=== PATIENT | female | born 1970 | race Hispanic/Latino ===

== ENCOUNTER 2016-04-20 18:08 | Inpatient (IN) | payer OTHER ==
[~2016-04-20] VITALS: Ht 162.6 cm; Wt 92.7 kg
[~2016-04-20 18:08] MED LIST: ALTACE10 MG PO; ALTACE2.5 MG PO; AMLODIPINE BESYL5 MG PO; AMOXICILLIN250 MG PO; ANCEF,KEFZ2 GM/100 M IV; ASPIR 8181 M1 PO; ATIVAN0.5 MG PO; BACTRIM,SEPT1 TABLET PO; BENTYL10 MG PO; CARAFATE1 GM PO; CEFTIN250 MG PO; CIPRO500 MG PO; COLACE100 MG PO; CYANOCOBALAM1000 MCG PO; CYCLOBENZAPRINE10 MG PO; DICYCLOMINE HCL20 MG PO; FERROUS SULFAT325 MG PO; FLEXERIL10 MG PO; FLUCONAZOLE200 MG PO; K-DUR10 MEQ PO; LEVAQUIN750 MG PO; LEVEMIR FL100 UNIT/1 SC; LEVEMIR100 UNIT/2 SC; LIPITOR40 MG PO; LOPRESSOR25 MG PO; LOPRESSOR50 MG PO; MACROBID100 MG PO; METOCLOPRAMIDE H5 MG PO; METOCLOPRAMIDE10 MG PO; MICRO-K10 ME2 PO; NAPROSYN500 MG PO; NAPROXEN500 MG PO; NOVOLIN,HU100 UNITS1 SC; NOVOLOG 10100 UNITS/ SC; NOVOLOG PE100 UNITS/ SC; OMEPRAZOLE20 MG PO; OMEPRAZOLE40 M1 PO; ONDANSETRON HCL4 MG PO; PANTOPRAZOLE SO40 MG PO; PHENADOZ25 MG PR; PHENERGAN25 MG PR; PRAVACHOL80 MG PO; PRAVASTATIN SOD80 MG PO; PRILOSEC20 MG PO; PROMETHAZINE HC25 MG PR; PROTONIX40 MG PO; PYRIDIUM100 MG PO; RAMIPRIL10 MG PO; REGLAN10 MG PO; REGLAN5 MG PO; SIMVASTATIN40 MG PO; SUCRALFATE1 GM PO; TRAMADOL HCL50 MG PO; ULTRAM50 MG PO; VANCOCIN 250 M250 MG PO; VANCOCIN HCL125 MG PO; ZOCOR40 MG PO; ZOFRAN ODT4 MG PO; ZOFRAN4 MG PO
[2016-04-20 18:43] LABS: HEMATOCRIT 35.4 % (36.0-46.0); MCH 25.7 PG (29.0-34.0); MCHC 33.6 G/DL (30.0-36.0); MEAN PLAT.VOLUME 10.5 uM^3 (9.5-12.4); PLATELET COUNT 320 K/uL (156-360); RBC DIS.WIDTH-CV 14.8 % (11.8-14.6); RBC DIS.WIDTH-SD 39.8 % (39-53); RED BLOOD COUNT 4.63 M/uL (3.80-5.20)
[2016-04-20 18:46] LABS: MCV 76.5 FL (83-99); WHITE BLOOD COUNT 5.6 K/uL (4.1-10.2)
[2016-04-20 18:51] LABS: CHLORIDE 104 mEq/L (99-109); POTASSIUM 3.4 mEq/L (3.7-5.4); SODIUM 140 mEq/L (136-147)
[2016-04-20 18:53] LABS: GLUCOSE 247 mg/dL (70-99)
[2016-04-20 18:54] LABS: ANION GAP 15 MEQ/L (2-14)
[2016-04-20 18:55] LABS: TOTAL BILIRUBIN 0.6 mg/dL (0.0-1.0)
[2016-04-20 18:56] LABS: ALKALINE PHOSPHATASE 160 IU/L (3-129)
[2016-04-20 18:57] LABS: GFR ESTIMATE (CALCULATED) > 59 mL/min/
[2016-04-20 18:58] LABS: UREA NITROGEN (BUN) 16 mg/dL (9-23)
[2016-04-20 19:06] LABS: QUANTITATIVE HCG < 4.0 MIU/ML
[2016-04-20 19:58] LABS: LIPASE 17 U/L (1.0-51.0)
[2016-04-20 20:00] LABS: ADD MIUA? YES; BILIRUBIN NEGATIVE; BLOOD SMALL; COLOR YELLOW ((YELLOW)); GLUCOSE (STRIP) 100; KETONES 15; LEUKOCYTES NEGATIVE; NITRITE NEGATIVE; PROTEIN (STRIP) >=300; SPECIFIC GRAVITY 1.019 (1.000-1.030); UROBILINOGEN 0.2 MG/DL (0.2-1.0)
[2016-04-20 21:02] LABS: EPITHELIAL CELLS 2+; WHITE BLOOD CELLS 0-5 /HPF (0-5)
[2016-04-20 21:03] LABS: BACTERIA 1+; CASTS NONE SEEN /LPF; CRYSTALS NONE SEEN; MUCUS NONE SEEN; UCUL ADDED? NO
[2016-04-20 21:51] LABS: CARBON DIOXIDE (BICARBONATE) 22.3 MEQ/L (20-31)
[2016-04-20 23:56] LABS: POINT-OF-CARE METER ID UU13113800
[2016-04-21 07:05] LABS: POINT-OF-CARE METER ID UU14100415; POINT-OF-CARE USER ID BHSJLM2
[2016-04-21] MEDS ORDERED: METOCLOPRAMIDE10 MG PO (08:22)
[2016-04-21] MEDS ORDERED: ATORVASTATIN CA80 MG PO (08:22)
[2016-04-21] MEDS ORDERED: RAMIPRIL10 MG PO (08:23)
[2016-04-21] MEDS ORDERED: BENTYL10 MG PO (08:23)
[2016-04-21] MEDS ORDERED: LEVEMIR100 UNIT/2 SC ×2 (08:24→08:25)
[2016-04-21] MEDS ORDERED: AMLODIPINE BESYL5 MG PO (08:25)
[2016-04-21] MEDS ORDERED: NOVOLOG 10100 UNITS/ SC ×2 (08:27→08:28)
[2016-04-21] MEDS ORDERED: LOPRESSOR50 MG PO (08:28)
[2016-04-21] MEDS ORDERED: CYANOCOBALAM1000 MCG PO (08:29)
[2016-04-21] MEDS ORDERED: FERROUS SULFAT325 MG PO (08:29)
[2016-04-21 09:28] LABS: ANION GAP 12 MEQ/L (2-14); CHLORIDE 108 MEQ/L (99-109); POTASSIUM 3.5 MEQ/L (3.7-5.4); SAMPLE HEMOLYSIS CHECK 0; SAMPLE ICTERIC CHECK 0; SAMPLE LIPEMIA CHECK 0; SODIUM 144 MEQ/L (136-147)
[2016-04-21 09:33] LABS: GFR ESTIMATE (CALCULATED) > 59 mL/min/; GLUCOSE 307 mg/dL (70-99); UREA NITROGEN (BUN) 20 mg/dL (9-23)
[2016-04-21 11:37] LABS: POINT-OF-CARE METER ID UU14100415; POINT-OF-CARE USER ID BHSJLM2
[2016-04-21 19:42] VITALS: BP 135/66
[2016-04-21 23:29] VITALS: BP 189/94
[2016-04-22 03:34] VITALS: BP 105/55; BP 165/89
[2016-04-22 07:24] LABS: EOSINOPHIL (%) 0.2 % (0-5); HEMATOCRIT 33.4 % (36.0-46.0); IMMATURE GRANULOCYTE (%) 0.3 % (0.0-0.7); LYMPHOCYTE COUNT 1.1 K/uL (1.0-2.8); MCH 25.2 PG (29.0-34.0); MCHC 31.4 G/DL (30.0-36.0); MCV 80.1 FL (83-99); MEAN PLAT.VOLUME 10.4 uM^3 (9.5-12.4); MONOCYTE (%) 6.4 % (3-12); MONOCYTE COUNT 0.4 K/uL (0-0.8); NEUTROPHIL (%) 73.7 % (45-76); NEUTROPHIL COUNT 4.3 K/uL (1.8-6.4); PLATELET COUNT 292 K/uL (156-360); RBC DIS.WIDTH-CV 15.7 % (11.8-14.6); RBC DIS.WIDTH-SD 45.7 % (39-53); RED BLOOD COUNT 4.17 M/uL (3.80-5.20); WHITE BLOOD COUNT 5.8 K/uL (4.1-10.2)
[2016-04-22 07:50] LABS: ANION GAP 10 MEQ/L (2-14); CHLORIDE 106 MEQ/L (99-109); GFR ESTIMATE (CALCULATED) > 59 mL/min/; GLUCOSE 241 mg/dL (70-99); POTASSIUM 3.5 MEQ/L (3.7-5.4); SAMPLE HEMOLYSIS CHECK 0; SAMPLE ICTERIC CHECK 0; SAMPLE LIPEMIA CHECK 0; SODIUM 144 MEQ/L (136-147); UREA NITROGEN (BUN) 21 mg/dL (9-23)
[2016-04-22 08:00] VITALS: BP 142/92
[2016-04-22 11:10] VITALS: BP 145/94
[2016-04-22 16:02] VITALS: BP 146/92
[2016-04-22 20:35] VITALS: BP 162/93
[2016-04-22 23:20] VITALS: BP 160/90
[2016-04-23 03:36] VITALS: BP 162/90; BP 188/86
[2016-04-23 06:50] VITALS: BP 148/90
[2016-04-23 07:37] LABS: ANION GAP 9 MEQ/L (2-14); CHLORIDE 107 MEQ/L (99-109); POTASSIUM 3.8 MEQ/L (3.7-5.4); SAMPLE HEMOLYSIS CHECK 1; SAMPLE ICTERIC CHECK 0; SAMPLE LIPEMIA CHECK 0; SODIUM 144 MEQ/L (136-147)
[2016-04-23 07:42] LABS: GFR ESTIMATE (CALCULATED) > 59 mL/min/; GLUCOSE 215 mg/dL (70-99); UREA NITROGEN (BUN) 19 mg/dL (9-23)
[2016-04-23 11:36] VITALS: BP 159/86
[2016-04-23 16:03] VITALS: BP 153/89
[2016-04-23 19:50] VITALS: BP 175/84
[2016-04-23 23:30] VITALS: BP 138/64
[2016-04-24 03:25] VITALS: BP 166/91
[2016-04-24 07:44] LABS: ANION GAP 7 MEQ/L (2-14); CHLORIDE 104 MEQ/L (99-109); GFR ESTIMATE (CALCULATED) > 59 mL/min/; GLUCOSE 183 mg/dL (70-99); POTASSIUM 3.4 MEQ/L (3.7-5.4); SAMPLE HEMOLYSIS CHECK 0; SAMPLE ICTERIC CHECK 0; SAMPLE LIPEMIA CHECK 0; SODIUM 144 MEQ/L (136-147); UREA NITROGEN (BUN) 19 mg/dL (9-23)
[2016-04-24 08:15] VITALS: BP 128/69
[2016-04-24 11:54] VITALS: BP 177/94
[2016-04-24] MEDS ORDERED: BENTYL10 MG PO (12:58)
[2016-04-24] MEDS ORDERED: METOCLOPRAMIDE10 MG PO (12:58)
[2016-04-24] MEDS ORDERED: AMLODIPINE BESYL5 MG PO (12:58)
== END 2016-04-24 15:24 | disposition home or self-care (01) | DRG 74 ==
LOC: EME 18:08 → EDOF 04-21 01:23 → 2EAST 04-21 12:20
PROVIDERS: Hospitalist; Internal Medicine; Nurse Practitioner Family
DX: E11.43 Type 2 diabetes mellitus with diabetic autonomic (poly)neuropathy (principal); K31.84 Gastroparesis; I10 Essential (primary) hypertension; E87.6 Hypokalemia; M54.30 Sciatica, unspecified side; Z79.4 Long term (current) use of insulin
CPT/HCPCS: 74000; 80048; 80053; 81003; 82009; 82803; 82948; 83690; 84702; 85025; 85027; 99281; 99285; J0360; J0696; J1170; J1650; J1815; J2405; J2765; J3480; J7030; J7050; S0028

== ENCOUNTER 2016-05-06 00:39 | Inpatient (IN) | payer OTHER ==
[~2016-05-06] VITALS: Ht 162.6 cm; Wt 90.9 kg
[~2016-05-06 00:39] MED LIST changes: +ATORVASTATIN CA80 MG PO
[2016-05-06 01:26] LABS: HEMATOCRIT 34.1 % (36.0-46.0); MCHC 32.8 G/DL (30.0-36.0); MCV 79.1 FL (83-99); MEAN PLAT.VOLUME 10.4 uM^3 (9.5-12.4); PLATELET COUNT 274 K/uL (156-360); RBC DIS.WIDTH-CV 15.4 % (11.8-14.6); RBC DIS.WIDTH-SD 43.1 % (39-53); RED BLOOD COUNT 4.31 M/uL (3.80-5.20); WHITE BLOOD COUNT 5.6 K/uL (4.1-10.2)
[2016-05-06 01:36] LABS: CHLORIDE 105 mEq/L (99-109); SODIUM 141 mEq/L (136-147)
[2016-05-06 01:39] LABS: GLUCOSE 191 mg/dL (70-99)
[2016-05-06 01:40] LABS: ANION GAP 8 MEQ/L (2-14)
[2016-05-06 01:41] LABS: TOTAL BILIRUBIN 0.2 mg/dL (0.0-1.0)
[2016-05-06 01:42] LABS: ALKALINE PHOSPHATASE 158 IU/L (3-129); GFR ESTIMATE (CALCULATED) > 59 mL/min/
[2016-05-06 01:43] LABS: UREA NITROGEN (BUN) 18 mg/dL (9-23)
[2016-05-06 01:45] LABS: ADD MIUA? YES; BILIRUBIN NEGATIVE; BLOOD TRACE; COLOR YELLOW ((YELLOW)); GLUCOSE (STRIP) >=1000; KETONES NEGATIVE; LEUKOCYTES NEGATIVE; NITRITE NEGATIVE; PH, URINE 6.5 (5-8); PROTEIN (STRIP) 100; UROBILINOGEN 0.2 MG/DL (0.2-1.0)
[2016-05-06 01:52] LABS: QUANTITATIVE HCG < 4.0 MIU/ML
[2016-05-06 02:03] LABS: BACTERIA RARE /HPF; EPITHELIAL CELLS 2+ /HPF; MUCUS NONE SEEN /LPF; RED BLOOD CELLS 0-5 /HPF (0-5); UCUL ADDED? NO; WHITE BLOOD CELLS 15-20 /HPF (0-5)
[2016-05-06 02:04] LABS: CASTS NONE SEEN /LPF; CRYSTALS NONE SEEN
[2016-05-06] MEDS ORDERED: RANITIDINE HCL300 MG PO (07:56)
[2016-05-06] MEDS ORDERED: NOVOLOG PE100 UNITS/ SC (07:56)
[2016-05-06] MEDS ORDERED: BACLOFEN10 MG PO (07:56)
[2016-05-06] MEDS ORDERED: BENTYL20 MG PO (08:01)
[2016-05-06 09:34] LABS: POINT-OF-CARE METER ID UU13113702
[2016-05-06 09:59] VITALS: BP 152/78
[2016-05-06 12:45] LABS: POINT-OF-CARE METER ID UU14162513
[2016-05-06 15:37] VITALS: BP 184/94
[2016-05-06 20:00] VITALS: BP 160/94
[2016-05-06 23:58] VITALS: BP 101/56
[2016-05-07 03:55] VITALS: BP 107/60
[2016-05-07 07:32] VITALS: BP 183/95
[2016-05-07 08:17] LABS: HEMATOCRIT 33.5 % (36.0-46.0); MCH 25.9 PG (29.0-34.0); MCHC 32.5 G/DL (30.0-36.0); MCV 79.6 FL (83-99); MEAN PLAT.VOLUME 10.3 uM^3 (9.5-12.4); PLATELET COUNT 264 K/uL (156-360); RBC DIS.WIDTH-CV 15.9 % (11.8-14.6); RBC DIS.WIDTH-SD 46.1 % (39-53); RED BLOOD COUNT 4.21 M/uL (3.80-5.20); WHITE BLOOD COUNT 4.2 K/uL (4.1-10.2)
[2016-05-07 08:38] LABS: ANION GAP 11 MEQ/L (2-14); CHLORIDE 103 MEQ/L (99-109); GFR ESTIMATE (CALCULATED) > 59 mL/min/; GLUCOSE 122 mg/dL (70-99); POTASSIUM 3.5 MEQ/L (3.7-5.4); SAMPLE HEMOLYSIS CHECK 0; SAMPLE ICTERIC CHECK 0; SAMPLE LIPEMIA CHECK 0; SODIUM 143 MEQ/L (136-147); UREA NITROGEN (BUN) 20 mg/dL (9-23)
[2016-05-07 10:27] LABS: MAGNESIUM 1.7 mg/dl (1.3-2.7)
[2016-05-07 12:00] VITALS: BP 171/914
[2016-05-07 13:07] LABS: POINT-OF-CARE METER ID UU14162513
[2016-05-07 14:15] VITALS: BP 170/95
[2016-05-07 20:07] VITALS: BP 145/78
[2016-05-07 21:27] LABS: POINT-OF-CARE USER ID AHSUCEG
[2016-05-07 23:34] VITALS: BP 164/80
[2016-05-08 08:05] VITALS: BP 167/89
[2016-05-08 09:27] LABS: MCH 25.9 PG (29.0-34.0); MCHC 32.5 G/DL (30.0-36.0); MCV 79.6 FL (83-99); MEAN PLAT.VOLUME 10.9 uM^3 (9.5-12.4); PLATELET COUNT 291 K/uL (156-360); RBC DIS.WIDTH-CV 15.5 % (11.8-14.6); RBC DIS.WIDTH-SD 45.3 % (39-53); RED BLOOD COUNT 4.52 M/uL (3.80-5.20); WHITE BLOOD COUNT 3.7 K/uL (4.1-10.2)
[2016-05-08 10:12] LABS: ANION GAP 12 MEQ/L (2-14); CHLORIDE 101 MEQ/L (99-109); GFR ESTIMATE (CALCULATED) > 59 mL/min/; POTASSIUM 3.4 MEQ/L (3.7-5.4); SAMPLE HEMOLYSIS CHECK 0; SAMPLE ICTERIC CHECK 0; SAMPLE LIPEMIA CHECK 0; SODIUM 142 MEQ/L (136-147); UREA NITROGEN (BUN) 18 mg/dL (9-23)
[2016-05-08 10:15] LABS: GLUCOSE 299 mg/dL (70-99)
[2016-05-08 15:38] VITALS: BP 137/96
[2016-05-08 19:45] VITALS: BP 116/68
[2016-05-08 23:30] VITALS: BP 98/60
[2016-05-09 03:10] VITALS: BP 139/85
[2016-05-09 07:00] VITALS: BP 151/89
[2016-05-09 07:21] LABS: EOSINOPHIL (%) 0 % (0-5); HEMATOCRIT 36.6 % (36.0-46.0); IMMATURE GRANULOCYTE (%) 0.3 % (0.0-0.7); LYMPHOCYTE COUNT 1.1 K/uL (1.0-2.8); MCH 26.4 PG (29.0-34.0); MCHC 33.1 G/DL (30.0-36.0); MCV 79.9 FL (83-99); MEAN PLAT.VOLUME 10.8 uM^3 (9.5-12.4); MONOCYTE (%) 9.5 % (3-12); MONOCYTE COUNT 0.4 K/uL (0-0.8); NEUTROPHIL (%) 59.5 % (45-76); NEUTROPHIL COUNT 2.2 K/uL (1.8-6.4); PLATELET COUNT 307 K/uL (156-360); RBC DIS.WIDTH-CV 15.5 % (11.8-14.6); RBC DIS.WIDTH-SD 45.4 % (39-53); RED BLOOD COUNT 4.58 M/uL (3.80-5.20); WHITE BLOOD COUNT 3.8 K/uL (4.1-10.2)
[2016-05-09 07:47] LABS: ANION GAP 12 MEQ/L (2-14); CHLORIDE 98 MEQ/L (99-109); GFR ESTIMATE (CALCULATED) > 59 mL/min/; GLUCOSE 259 mg/dL (70-99); POTASSIUM 3.4 MEQ/L (3.7-5.4); SAMPLE HEMOLYSIS CHECK 0; SAMPLE ICTERIC CHECK 0; SAMPLE LIPEMIA CHECK 0; SODIUM 143 MEQ/L (136-147); UREA NITROGEN (BUN) 28 mg/dL (9-23)
[2016-05-09 18:36] VITALS: BP 136/93
[2016-05-09 20:00] VITALS: BP 167/91
[2016-05-09 22:15] VITALS: BP 124/64
[2016-05-10] VITALS: BP 116/68
[2016-05-10 04:00] VITALS: BP 165/79
[2016-05-10 06:50] VITALS: BP 137/80
[2016-05-10 11:05] LABS: EOSINOPHIL (%) 0.2 % (0-5); HEMATOCRIT 36.3 % (36.0-46.0); IMMATURE GRANULOCYTE (%) 0.2 % (0.0-0.7); LYMPHOCYTE COUNT 1.5 K/uL (1.0-2.8); MCH 26.4 PG (29.0-34.0); MCHC 32.8 G/DL (30.0-36.0); MCV 80.5 FL (83-99); MEAN PLAT.VOLUME 11.1 uM^3 (9.5-12.4); MONOCYTE (%) 7.8 % (3-12); MONOCYTE COUNT 0.4 K/uL (0-0.8); NEUTROPHIL (%) 60.6 % (45-76); PLATELET COUNT 305 K/uL (156-360); RBC DIS.WIDTH-CV 15.5 % (11.8-14.6); RBC DIS.WIDTH-SD 45.6 % (39-53); RED BLOOD COUNT 4.51 M/uL (3.80-5.20); WHITE BLOOD COUNT 4.9 K/uL (4.1-10.2)
[2016-05-10 11:43] LABS: ANION GAP 10 MEQ/L (2-14); CHLORIDE 97 MEQ/L (99-109); GFR ESTIMATE (CALCULATED) > 59 mL/min/; GLUCOSE 225 mg/dL (70-99); POTASSIUM 3.6 MEQ/L (3.7-5.4); SAMPLE HEMOLYSIS CHECK 0; SAMPLE ICTERIC CHECK 0; SAMPLE LIPEMIA CHECK 0; SODIUM 139 MEQ/L (136-147); UREA NITROGEN (BUN) 31 mg/dL (9-23)
[2016-05-10 16:00] VITALS: BP 188/93
[2016-05-10 16:57] VITALS: BP 102/61
[2016-05-10 23:28] VITALS: BP 91/52
[2016-05-11 07:45] VITALS: BP 147/76
[2016-05-11 10:26] LABS: ANION GAP 7 MEQ/L (2-14); CHLORIDE 94 MEQ/L (99-109); POTASSIUM 3.5 MEQ/L (3.7-5.4); SAMPLE HEMOLYSIS CHECK 0; SAMPLE ICTERIC CHECK 0; SAMPLE LIPEMIA CHECK 0; SODIUM 135 MEQ/L (136-147)
[2016-05-11 10:31] LABS: GFR ESTIMATE (CALCULATED) > 59 mL/min/; GLUCOSE 198 mg/dL (70-99); UREA NITROGEN (BUN) 30 mg/dL (9-23)
[2016-05-11] MEDS ORDERED: LEVEMIR100 UNIT/2 SC ×2 (11:14)
[2016-05-11] MEDS ORDERED: AMLODIPINE BESY10 MG PO (11:14)
== END 2016-05-11 12:30 | disposition home health service (06) | DRG 639 ==
LOC: EME 00:39 → EDOF 08:29 → 5WEST 08:29 → EDOF 08:32 → 5WEST 09:53 → 2EAST 05-07 11:03
PROVIDERS: Hospitalist; Internal Medicine; Physician Assistant
DX: E11.65 Type 2 diabetes mellitus with hyperglycemia (principal); K82.8 Other specified diseases of gallbladder; E11.43 Type 2 diabetes mellitus with diabetic autonomic (poly)neuropathy; E87.6 Hypokalemia; F32.9 Major depressive disorder, single episode, unspecified; R10.13 Epigastric pain; R11.2 Nausea with vomiting, unspecified; M54.40 Lumbago with sciatica, unspecified side; I10 Essential (primary) hypertension; E78.5 Hyperlipidemia, unspecified; K21.9 Gastro-esophageal reflux disease without esophagitis; Z91.11 Patient's noncompliance with dietary regimen; Z88.5 Allergy status to narcotic agent
CPT/HCPCS: 70450; 74177; 76705; 80048; 80053; 81003; 82948; 83690; 83735; 84702; 85025; 85027; 99281; 99285; C9113; G0378; J0360; J1630; J1650; J1815; J2405; J2550; J2765; J3480; J7030; S0028

== ENCOUNTER 2016-08-29 07:52 | Observation (INO) | payer OTHER ==
[~2016-08-29] VITALS: Ht 162.6 cm; Wt 99.8 kg
[~2016-08-29 07:52] MED LIST changes: +AMLODIPINE BESY10 MG PO; +BACLOFEN10 MG PO; +BENTYL20 MG PO; +RANITIDINE HCL300 MG PO
[2016-08-29 08:12] LABS: POINT-OF-CARE METER ID UU13113778
[2016-08-29 08:40] LABS: EOSINOPHIL (%) 1.2 % (0-5); EOSINOPHIL COUNT 0.1 K/uL (0-0.3); HEMATOCRIT 33.1 % (36.0-46.0); IMMATURE GRANULOCYTE (%) 0.4 % (0.0-0.7); INSTRUMENT ABS NEUTROPHIL CT 3.6 K/uL; LYMPHOCYTE COUNT 1.1 K/uL (1.0-2.8); MCH 25.8 PG (29.0-34.0); MCHC 32.6 G/DL (30.0-36.0); MEAN PLAT.VOLUME 10.9 uM^3 (9.5-12.4); MONOCYTE (%) 4.7 % (3-12); MONOCYTE COUNT 0.2 K/uL (0-0.8); NEUTROPHIL (%) 71.8 % (45-76); NEUTROPHIL COUNT 3.6 K/uL (1.8-6.4); PLATELET COUNT 240 K/uL (156-360); RBC DIS.WIDTH-CV 14.5 % (11.8-14.6); RBC DIS.WIDTH-SD 41.3 % (39-53); RED BLOOD COUNT 4.19 M/uL (3.80-5.20); WHITE BLOOD COUNT 5.1 K/uL (4.1-10.2)
[2016-08-29 08:48] LABS: CHLORIDE 105 mEq/L (99-109); POTASSIUM 3.7 mEq/L (3.7-5.4); SODIUM 140 mEq/L (136-147)
[2016-08-29 08:52] LABS: ANION GAP 9 MEQ/L (2-14); TOTAL BILIRUBIN 0.4 mg/dL (0.0-1.0)
[2016-08-29 08:54] LABS: ALKALINE PHOSPHATASE 176 IU/L (3-129); GFR ESTIMATE (CALCULATED) > 59 mL/min/
[2016-08-29 08:55] LABS: UREA NITROGEN (BUN) 14 mg/dL (9-23)
[2016-08-29 08:56] LABS: CARBON DIOXIDE (BICARBONATE) 30.5 MEQ/L (20-31)
[2016-08-29 08:57] LABS: LIPASE 25 U/L (1.0-51.0)
[2016-08-29 09:03] LABS: GLUCOSE 374 mg/dL (70-99)
[2016-08-29 10:58] LABS: ADD MIUA? YES; BILIRUBIN NEGATIVE; BLOOD SMALL; COLOR STRAW ((YELLOW)); GLUCOSE (STRIP) >=500; KETONES NEGATIVE; LEUKOCYTES NEGATIVE; NITRITE NEGATIVE; PROTEIN (STRIP) 100; SPECIFIC GRAVITY 1.021 (1.000-1.030); UROBILINOGEN 0.2 MG/DL (0.2-1.0)
[2016-08-29] MEDS ORDERED: ROSUVASTATIN CA40 MG PO (11:46)
[2016-08-29 11:48] LABS: BACTERIA RARE /HPF; EPITHELIAL CELLS RARE /HPF; MUCUS TRACE /LPF; WHITE BLOOD CELLS 0-5 /HPF (0-5)
[2016-08-29] MEDS ORDERED: LANTUS 10100 UNITS/ SC (11:51)
[2016-08-29] MEDS ORDERED: BUPROPION HCL150 M2 PO (11:52)
[2016-08-29] MEDS ORDERED: NOVOLOG 10100 UNITS/ SC (11:53)
[2016-08-29] MEDS ORDERED: ZOFRAN4 MG PO (11:54)
[2016-08-29] MEDS ORDERED: OMEPRAZOLE40 M1 PO (11:56)
[2016-08-29 12:26] LABS: POINT-OF-CARE METER ID UU13113702
[2016-08-29 12:57] LABS: TROP-I INTERPRETATION NEGATIVE; TROPONIN-I < 0.01 ng/mL (0.0-0.30)
[2016-08-29 13:33] VITALS: BP 195/93
[2016-08-29 15:24] VITALS: BP 204/98
[2016-08-29 16:55] VITALS: BP 162/87
[2016-08-29 16:57] LABS: POINT-OF-CARE METER ID UU13113831
[2016-08-29 19:43] LABS: TROP-I INTERPRETATION NEGATIVE; TROPONIN-I < 0.01 ng/mL (0.0-0.30)
[2016-08-29 19:50] VITALS: BP 158/90
[2016-08-29 22:37] LABS: POINT-OF-CARE METER ID UU13113831
[2016-08-29 23:00] VITALS: BP 163/91
[2016-08-30 00:06] VITALS: BP 162/74
[2016-08-30 01:30] LABS: TROP-I INTERPRETATION NEGATIVE; TROPONIN-I < 0.01 ng/mL (0.0-0.30)
[2016-08-30 04:00] VITALS: BP 136/74
[2016-08-30 06:24] LABS: ALKALINE PHOSPHATASE 141 IU/L (3-129); ANION GAP 12 MEQ/L (2-14); CHLORIDE 105 MEQ/L (99-109); GFR ESTIMATE (CALCULATED) > 59 mL/min/; POTASSIUM 3.4 MEQ/L (3.7-5.4); SAMPLE HEMOLYSIS CHECK 0; SAMPLE ICTERIC CHECK 0; SAMPLE LIPEMIA CHECK 0; SODIUM 141 MEQ/L (136-147); UREA NITROGEN (BUN) 16 mg/dL (9-23)
[2016-08-30 06:32] LABS: GLUCOSE 176 mg/dL (70-99); TOTAL BILIRUBIN 0.4 MG/DL (0.0-1.0)
[2016-08-30 08:40] LABS: POINT-OF-CARE METER ID UU13113700
[2016-08-30 10:00] VITALS: BP 175/86
[2016-08-30 11:45] VITALS: BP 182/85
[2016-08-30 12:06] LABS: POINT-OF-CARE METER ID UU13113700
[2016-08-30] MEDS ORDERED: PHENERGAN25 MG PR (14:41)
[2016-08-30 15:15] VITALS: BP 138/71
== END 2016-08-30 16:00 | disposition home or self-care (01) ==
LOC: EME 07:52 → EDOF 11:24 → 5WEST 13:32
PROVIDERS: Emergency Medicine; Internal Medicine; Student in an Organized Health Care Education/Training Program
DX: R11.2 Nausea with vomiting, unspecified (principal); E11.65 Type 2 diabetes mellitus with hyperglycemia; E11.43 Type 2 diabetes mellitus with diabetic autonomic (poly)neuropathy; K31.84 Gastroparesis; I10 Essential (primary) hypertension; E78.5 Hyperlipidemia, unspecified; K21.9 Gastro-esophageal reflux disease without esophagitis; Z79.4 Long term (current) use of insulin; D50.9 Iron deficiency anemia, unspecified; R31.9 Hematuria, unspecified; R80.9 Proteinuria, unspecified
CPT/HCPCS: 74176; 80053; 81003; 82803; 82948; 83690; 84484; 85025; 93005; 99281; 99285; C9113; G0378; J0360; J1815; J1885; J2405; J2765; J3010; J7030

== ENCOUNTER 2016-11-03 04:55 | Inpatient (IN) | payer OTHER ==
[~2016-11-03] VITALS: Ht 162.6 cm; Wt 107.0 kg
[~2016-11-03 04:55] MED LIST changes: +BUPROPION HCL150 M2 PO; +LANTUS 10100 UNITS/ SC; +ROSUVASTATIN CA40 MG PO
[2016-11-03 05:13] LABS: POINT-OF-CARE METER ID UU13113778
[2016-11-03 05:54] LABS: EOSINOPHIL (%) 0 % (0-5); HEMATOCRIT 34.9 % (36.0-46.0); IMMATURE GRANULOCYTE (%) 0.8 % (0.0-0.7); IMMATURE GRANULOCYTE COUNT 0.1 K/uL; INSTRUMENT ABS NEUTROPHIL CT 12.1 K/uL; LYMPHOCYTE COUNT 0.6 K/uL (1.0-2.8); MCH 25.9 PG (29.0-34.0); MCHC 32.1 G/DL (30.0-36.0); MCV 80.6 FL (83-99); MEAN PLAT.VOLUME 11.3 uM^3 (9.5-12.4); MONOCYTE (%) 7.3 % (3-12); NEUTROPHIL (%) 87.1 % (45-76); NEUTROPHIL COUNT 12.1 K/uL (1.8-6.4); PLATELET COUNT 239 K/uL (156-360); RBC DIS.WIDTH-CV 14.6 % (11.8-14.6); RBC DIS.WIDTH-SD 42.6 % (39-53); RED BLOOD COUNT 4.33 M/uL (3.80-5.20); WHITE BLOOD COUNT 13.9 K/uL (4.1-10.2)
[2016-11-03 05:55] LABS: CARBON DIOXIDE (BICARBONATE) 27.5 MEQ/L (20-31)
[2016-11-03 06:04] LABS: CHLORIDE 106 mEq/L (99-109); POTASSIUM 4.1 mEq/L (3.7-5.4); SODIUM 142 mEq/L (136-147)
[2016-11-03 06:07] LABS: ANION GAP 15 MEQ/L (2-14)
[2016-11-03 06:09] LABS: GFR ESTIMATE (CALCULATED) > 59 mL/min/
[2016-11-03 06:10] LABS: UREA NITROGEN (BUN) 26 mg/dL (9-23)
[2016-11-03 06:23] LABS: GLUCOSE 403 mg/dL (70-99)
[2016-11-03 08:16] LABS: ADD MIUA? YES; BILIRUBIN NEGATIVE; BLOOD MODERATE; COLOR YELLOW ((YELLOW)); GLUCOSE (STRIP) >=500; KETONES 20; LEUKOCYTES MODERATE; NITRITE NEGATIVE; PROTEIN (STRIP) 100; SPECIFIC GRAVITY 1.018 (1.000-1.030); UROBILINOGEN 0.2 MG/DL (0.2-1.0)
[2016-11-03 08:33] LABS: POINT-OF-CARE METER ID UU13113702
[2016-11-03] MEDS ORDERED: NEURONTIN400 MG PO (08:34)
[2016-11-03 08:42] LABS: WHITE BLOOD CELLS TNTC /HPF (0-5)
[2016-11-03 08:44] LABS: BACTERIA 3+ /HPF; CASTS NONE SEEN /LPF; CRYSTALS NONE SEEN; EPITHELIAL CELLS RARE /HPF; MUCUS NONE SEEN /LPF; UCUL ADDED? YES
[2016-11-03 08:55] VITALS: BP 177/85
[2016-11-03 11:04] VITALS: BP 178/86
[2016-11-03 11:38] VITALS: BP 129/60
[2016-11-03 11:41] LABS: POINT-OF-CARE METER ID UU13113831
[2016-11-03 16:03] VITALS: BP 103/55
[2016-11-03 17:07] LABS: POINT-OF-CARE METER ID UU13113831
[2016-11-03 19:54] VITALS: BP 88/52
[2016-11-03 21:39] LABS: POINT-OF-CARE METER ID UU14162513
[2016-11-03 23:43] VITALS: BP 95/52
[2016-11-04] VITALS (19 sets, daily range): BP systolic 65–148; BP diastolic 37–78
[2016-11-04 04:59] LABS: POINT-OF-CARE METER ID UU13113700
[2016-11-04 05:01] LABS: CHLORIDE 107 mEq/L (99-109); POTASSIUM 3.6 mEq/L (3.7-5.4); SODIUM 139 mEq/L (136-147)
[2016-11-04 05:03] LABS: GLUCOSE 347 mg/dL (70-99)
[2016-11-04 05:05] LABS: ANION GAP 11 MEQ/L (2-14); TOTAL BILIRUBIN 0.5 mg/dL (0.0-1.0)
[2016-11-04 05:07] LABS: ALKALINE PHOSPHATASE 98 IU/L (3-129)
[2016-11-04 05:08] LABS: UREA NITROGEN (BUN) 33 mg/dL (9-23)
[2016-11-04 05:09] LABS: DIRECT BILIRUBIN 0.3 mg/dL (0.0-0.3); HEMATOCRIT 27.7 % (36.0-46.0); MCH 25.8 PG (29.0-34.0); MCHC 30.3 G/DL (30.0-36.0); MEAN PLAT.VOLUME 11.7 uM^3 (9.5-12.4); NRBC (%) 0.1 /100 WBC (0-0); PLATELET COUNT 177 K/uL (156-360); RBC DIS.WIDTH-CV 15.3 % (11.8-14.6); RBC DIS.WIDTH-SD 47.4 % (39-53); RED BLOOD COUNT 3.26 M/uL (3.80-5.20); WHITE BLOOD COUNT 16.4 K/uL (4.1-10.2)
[2016-11-04 05:14] LABS: GFR ESTIMATE (CALCULATED) 20 mL/min/
[2016-11-04 05:25] LABS: TROP-I INTERPRETATION NEGATIVE; TROPONIN-I < 0.01 ng/mL (0.0-0.30)
[2016-11-04 06:58] LABS: METH RESISTANT S AUREUS PCR POSITIVE (NEGATIVE)
[2016-11-04 07:29] LABS: PROBE CHECK PASS
[2016-11-04 08:19] LABS: POINT-OF-CARE METER ID UU14208751
[2016-11-04 12:16] LABS: POINT-OF-CARE METER ID UU14208751
[2016-11-04 17:08] LABS: POINT-OF-CARE METER ID UU14208751
[2016-11-04 21:29] LABS: POINT-OF-CARE METER ID UU14162636
[2016-11-05] VITALS (22 sets, daily range): BP systolic 83–172; BP diastolic 50–103
[2016-11-05 08:39] LABS: POINT-OF-CARE METER ID UU14208751
[2016-11-05 12:32] LABS: HEMATOCRIT 26.5 % (36.0-46.0); MCH 26.4 PG (29.0-34.0); MCHC 31.3 G/DL (30.0-36.0); MCV 84.4 FL (83-99); MEAN PLAT.VOLUME 11.9 uM^3 (9.5-12.4); PLATELET COUNT 159 K/uL (156-360); RBC DIS.WIDTH-CV 15.5 % (11.8-14.6); RBC DIS.WIDTH-SD 47.3 % (39-53); RED BLOOD COUNT 3.14 M/uL (3.80-5.20); WHITE BLOOD COUNT 10.9 K/uL (4.1-10.2)
[2016-11-05 12:34] LABS: POINT-OF-CARE METER ID UU13113748
[2016-11-05 13:00] LABS: ABS NEUTROPHIL COUNT 9.6; BAND NEUTROPHILS 13.2 % (0-8.0); BASOPHILS 0.9 %; EOSINOPHIL ABS CT 0.2; EOSINOPHILS 1.7 % (0-5.0); PLAT.SUFFICIENCY ADEQUATE; SEG.NEUTROPHILS 74.6 % (46.0-76.0)
[2016-11-05 13:21] LABS: ANION GAP 8 MEQ/L (2-14); CHLORIDE 112 MEQ/L (99-109); POTASSIUM 3.8 MEQ/L (3.7-5.4); SAMPLE HEMOLYSIS CHECK 0; SAMPLE ICTERIC CHECK 0; SAMPLE LIPEMIA CHECK 0; SODIUM 143 MEQ/L (136-147)
[2016-11-05 13:27] LABS: GFR ESTIMATE (CALCULATED) 40 mL/min/; GLUCOSE 269 mg/dL (70-99); UREA NITROGEN (BUN) 33 mg/dL (9-23)
[2016-11-05 17:10] LABS: POINT-OF-CARE METER ID UU14174217
[2016-11-05 21:41] LABS: POINT-OF-CARE METER ID UU14208751
[2016-11-06] VITALS (12 sets, daily range): BP systolic 84–187; BP diastolic 43–97
[2016-11-06 06:05] LABS: MCH 25.8 PG (29.0-34.0); MCHC 31.1 G/DL (30.0-36.0); MCV 82.8 FL (83-99); MEAN PLAT.VOLUME 12.2 uM^3 (9.5-12.4); PLATELET COUNT 157 K/uL (156-360); RBC DIS.WIDTH-CV 15.2 % (11.8-14.6); RBC DIS.WIDTH-SD 45.9 % (39-53); RED BLOOD COUNT 3.26 M/uL (3.80-5.20); WHITE BLOOD COUNT 7.6 K/uL (4.1-10.2)
[2016-11-06 06:29] LABS: EOSINOPHIL (%) 1.3 % (0-5); EOSINOPHIL COUNT 0.1 K/uL (0-0.3); IMMATURE GRANULOCYTE (%) 0.7 % (0.0-0.7); IMMATURE GRANULOCYTE COUNT 0.1 K/uL; INSTRUMENT ABS NEUTROPHIL CT 5.6 K/uL; MONOCYTE (%) 9.9 % (3-12); MONOCYTE COUNT 0.8 K/uL (0-0.8); NEUTROPHIL (%) 74.1 % (45-76); NEUTROPHIL COUNT 5.6 K/uL (1.8-6.4)
[2016-11-06 06:40] LABS: ANION GAP 9 MEQ/L (2-14); CHLORIDE 109 MEQ/L (99-109); GFR ESTIMATE (CALCULATED) 43 mL/min/; GLUCOSE 213 mg/dL (70-99); POTASSIUM 4.1 MEQ/L (3.7-5.4); SAMPLE HEMOLYSIS CHECK 0; SAMPLE ICTERIC CHECK 0; SAMPLE LIPEMIA CHECK 0; SODIUM 143 MEQ/L (136-147); UREA NITROGEN (BUN) 28 mg/dL (9-23)
[2016-11-06 08:53] LABS: POINT-OF-CARE METER ID UU14208751; POINT-OF-CARE USER ID AGYTJR
[2016-11-06 11:43] LABS: POINT-OF-CARE METER ID UU14208750
[2016-11-06 15:54] LABS: POINT-OF-CARE METER ID UU14208750
[2016-11-06 21:20] LABS: POINT-OF-CARE METER ID UU14208750
[2016-11-07 00:50] VITALS: BP 128/68
[2016-11-07 04:08] VITALS: BP 117/58
[2016-11-07 06:25] LABS: POINT-OF-CARE METER ID UU14208750
[2016-11-07 07:09] LABS: GFR ESTIMATE (CALCULATED) 47 mL/min/; GLUCOSE 262 mg/dL (70-99); SAMPLE HEMOLYSIS CHECK 0; SAMPLE ICTERIC CHECK 0; SAMPLE LIPEMIA CHECK 0; UREA NITROGEN (BUN) 26 mg/dL (9-23)
[2016-11-07 07:14] LABS: ANION GAP 9 MEQ/L (2-14); CHLORIDE 104 MEQ/L (99-109); SODIUM 141 MEQ/L (136-147)
[2016-11-07 07:45] VITALS: BP 167/97
[2016-11-07 08:06] LABS: Estimated Average Glucose 283 mg/dL (70-123)
[2016-11-07 08:35] LABS: HEMOGLOBIN A1c (GLYCOHEMOGLOB) 11.5 % HGB (Below 5.7)
[2016-11-07 11:42] LABS: POINT-OF-CARE METER ID UU14208750
[2016-11-07 15:40] VITALS: BP 135/74
[2016-11-07 16:48] LABS: POINT-OF-CARE METER ID UU14162508
[2016-11-07 21:28] LABS: POINT-OF-CARE METER ID UU14208750
[2016-11-08 00:41] VITALS: BP 126/64
[2016-11-08 06:17] LABS: POINT-OF-CARE METER ID UU14162508
[2016-11-08 06:46] LABS: HEMATOCRIT 26.1 % (36.0-46.0); MCH 26.1 PG (29.0-34.0); MCHC 32.2 G/DL (30.0-36.0); MCV 81.1 FL (83-99); MEAN PLAT.VOLUME 11.9 uM^3 (9.5-12.4); NRBC (%) 0.3 /100 WBC (0-0); PLATELET COUNT 193 K/uL (156-360); RBC DIS.WIDTH-CV 14.7 % (11.8-14.6); RBC DIS.WIDTH-SD 43.8 % (39-53); RED BLOOD COUNT 3.22 M/uL (3.80-5.20); WHITE BLOOD COUNT 7.7 K/uL (4.1-10.2)
[2016-11-08 07:10] LABS: ANION GAP 7 MEQ/L (2-14); CHLORIDE 103 MEQ/L (99-109); GFR ESTIMATE (CALCULATED) 52 mL/min/; GLUCOSE 282 mg/dL (70-99); MAGNESIUM 1.8 mg/dl (1.3-2.7); POTASSIUM 3.7 MEQ/L (3.7-5.4); SAMPLE HEMOLYSIS CHECK 0; SAMPLE ICTERIC CHECK 0; SAMPLE LIPEMIA CHECK 0; SODIUM 140 MEQ/L (136-147); UREA NITROGEN (BUN) 22 mg/dL (9-23)
[2016-11-08 07:45] VITALS: BP 160/90
[2016-11-08 11:22] LABS: POINT-OF-CARE METER ID UU14162508
[2016-11-08] MEDS ORDERED: CEFTIN500 MG PO (12:19)
[2016-11-08] MEDS ORDERED: AMLODIPINE BESY10 MG PO (12:21)
[2016-11-08] MEDS ORDERED: LEVEMIR100 UNIT/2 SC ×2 (12:21)
[2016-11-08] MEDS ORDERED: NOVOLOG PE100 UNITS/ SC (12:29)
[2016-11-09] MEDS ORDERED: METOCLOPRAMIDE10 MG PO (14:47)
== END 2016-11-08 13:28 | disposition home or self-care (01) | DRG 871 ==
LOC: EME 04:55 → EDOF 07:43 → ENRESERV 07:48 → 5WEST 08:44 → ENRESERV 11-04 05:06 → 4WEST 11-04 05:27 → ENRESERV 11-06 09:04 → 2EAST 11-06 11:31
PROVIDERS: Emergency Medicine; Hospitalist; Internal Medicine; Internal Medicine Critical Care Medicine; Radiology Diagnostic Radiology
PROC: 05HN33Z Insertion of Infusion Device into Left Internal Jugular Vein, Percutaneous Approach (ICD-10-PCS; principal; 2016-11-04)
DX: A41.9 Sepsis, unspecified organism (principal); N39.0 Urinary tract infection, site not specified; N17.9 Acute kidney failure, unspecified; R65.21 Severe sepsis with septic shock; B96.20 Unspecified Escherichia coli [E. coli] as the cause of diseases classified elsewhere; E10.43 Type 1 diabetes mellitus with diabetic autonomic (poly)neuropathy; E78.5 Hyperlipidemia, unspecified; I10 Essential (primary) hypertension; E10.65 Type 1 diabetes mellitus with hyperglycemia; E10.21 Type 1 diabetes mellitus with diabetic nephropathy; E86.1 Hypovolemia; E86.0 Dehydration; Z68.41 Body mass index [BMI] 40.0-44.9, adult; N28.0 Ischemia and infarction of kidney; E66.01 Morbid (severe) obesity due to excess calories; K21.9 Gastro-esophageal reflux disease without esophagitis; Z79.4 Long term (current) use of insulin; Z79.899 Other long term (current) drug therapy
CPT/HCPCS: 71010; 76770; 80048; 80053; 81003; 82248; 82803; 82948; 83036; 83605; 83735; 84484; 85025; 85027; 85730; 87040; 87077; 87086; 87186; 87641; 87801; 93005; 94799; 99281; 99285; C1751; G0378; J0360; J0696; J1630; J1644; J1650; J1815; J2405; J2765; J3010; J7030; J7050; S0028

== ENCOUNTER 2016-11-09 01:31 | Inpatient (IN) | payer OTHER ==
[~2016-11-09] VITALS: Ht 162.6 cm; Wt 99.7 kg
[~2016-11-09 01:31] MED LIST changes: +CEFTIN500 MG PO; +NEURONTIN400 MG PO
[2016-11-09 02:19] LABS: POINT-OF-CARE METER ID UU14100415
[2016-11-09 02:59] LABS: CARBON DIOXIDE (BICARBONATE) 31.7 MEQ/L (20-31)
[2016-11-09 03:00] LABS: HEMATOCRIT 28.8 % (36.0-46.0); MCH 25.4 PG (29.0-34.0); MCHC 31.9 G/DL (30.0-36.0); MCV 79.6 FL (83-99); MEAN PLAT.VOLUME 11.5 uM^3 (9.5-12.4); RBC DIS.WIDTH-CV 14.7 % (11.8-14.6); RBC DIS.WIDTH-SD 42.2 % (39-53); RED BLOOD COUNT 3.62 M/uL (3.80-5.20); WHITE BLOOD COUNT 7.5 K/uL (4.1-10.2)
[2016-11-09 03:01] LABS: PLATELET COUNT 258 K/uL (156-360)
[2016-11-09 03:07] LABS: CHLORIDE 104 mEq/L (99-109); POTASSIUM 3.1 mEq/L (3.7-5.4); SODIUM 143 mEq/L (136-147)
[2016-11-09 03:09] LABS: GLUCOSE 364 mg/dL (70-99)
[2016-11-09 03:10] LABS: ANION GAP 12 MEQ/L (2-14)
[2016-11-09 03:13] LABS: GFR ESTIMATE (CALCULATED) > 59 mL/min/
[2016-11-09 03:14] LABS: UREA NITROGEN (BUN) 16 mg/dL (9-23)
[2016-11-09 03:16] LABS: LIPASE 24 U/L (1.0-51.0)
[2016-11-09 03:25] LABS: ALKALINE PHOSPHATASE 184 IU/L (3-129); TOTAL BILIRUBIN 0.3 mg/dL (0.0-1.0)
[2016-11-09 06:45] LABS: POINT-OF-CARE METER ID UU14100415
[2016-11-09 07:15] LABS: BICARBONATE 29.5 mEq/L (22-26); CARBOXY HGB 1.4 % (0-5); METHEMOGLOBIN 1.3 % (0-1.5); PO2 67 mm Hg (80-100); pH 7.56 (7.35-7.45)
[2016-11-09 07:16] LABS: COMMENTS - BLOOD GASES A+C+; DEVICE ROOM AIR; FI02 0.21 %; PCO2 33 mm Hg (35-45); SITE RR; TOTAL RESP RATE 18 resp/min
[2016-11-09 08:20] VITALS: BP 208/102
[2016-11-09 08:32] LABS: IRON 32 MCG/DL (35-150); SAMPLE HEMOLYSIS CHECK 0; SAMPLE ICTERIC CHECK 0; SAMPLE LIPEMIA CHECK 0
[2016-11-09 09:51] LABS: TROP-I INTERPRETATION NEGATIVE; TROPONIN-I < 0.01 ng/mL (0.0-0.30)
[2016-11-09 10:56] VITALS: BP 162/78
[2016-11-09 12:46] LABS: POINT-OF-CARE METER ID UU13113700
[2016-11-09] MEDS ORDERED: METOCLOPRAMIDE10 MG PO (14:47)
[2016-11-09 16:50] VITALS: BP 191/90
[2016-11-09 18:14] LABS: POINT-OF-CARE METER ID UU13113700
[2016-11-09 19:48] VITALS: BP 164/79
[2016-11-09 20:31] VITALS: BP 146/96
[2016-11-09 20:40] LABS: POINT-OF-CARE METER ID UU14188625
[2016-11-09 23:38] LABS: POINT-OF-CARE METER ID UU14188625
[2016-11-09 23:41] VITALS: BP 183/79
[2016-11-10 03:26] VITALS: BP 164/77
[2016-11-10 05:31] LABS: HEMATOCRIT 27.1 % (36.0-46.0); MCH 25.4 PG (29.0-34.0); MCHC 31.4 G/DL (30.0-36.0); MCV 81.1 FL (83-99); MEAN PLAT.VOLUME 10.7 uM^3 (9.5-12.4); PLATELET COUNT 325 K/uL (156-360); RBC DIS.WIDTH-SD 43.9 % (39-53); RED BLOOD COUNT 3.34 M/uL (3.80-5.20); WHITE BLOOD COUNT 7.7 K/uL (4.1-10.2)
[2016-11-10 05:56] LABS: ANION GAP 10 MEQ/L (2-14); CHLORIDE 111 MEQ/L (99-109); GFR ESTIMATE (CALCULATED) > 59 mL/min/; MAGNESIUM 1.8 mg/dl (1.3-2.7); POTASSIUM 3.2 MEQ/L (3.7-5.4); SAMPLE HEMOLYSIS CHECK 0; SAMPLE ICTERIC CHECK 0; SAMPLE LIPEMIA CHECK 0; UREA NITROGEN (BUN) 18 mg/dL (9-23)
[2016-11-10 05:57] LABS: GLUCOSE 164 mg/dL (70-99); SODIUM 152 MEQ/L (136-147)
[2016-11-10 06:12] LABS: EOSINOPHIL (%) 0 % (0-5); IMMATURE GRANULOCYTE (%) 1.8 % (0.0-0.7); IMMATURE GRANULOCYTE COUNT 0.1 K/uL; INSTRUMENT ABS NEUTROPHIL CT 5.5 K/uL; LYMPHOCYTE COUNT 1.4 K/uL (1.0-2.8); MONOCYTE (%) 8.1 % (3-12); MONOCYTE COUNT 0.6 K/uL (0-0.8); NEUTROPHIL (%) 72.2 % (45-76); NEUTROPHIL COUNT 5.5 K/uL (1.8-6.4)
[2016-11-10 08:30] VITALS: BP 157/81
[2016-11-10 11:50] LABS: POINT-OF-CARE METER ID UU14188625
[2016-11-10 11:52] VITALS: BP 166/87
[2016-11-10 16:11] VITALS: BP 156/88
[2016-11-10 19:55] VITALS: BP 182/90
[2016-11-10 23:43] VITALS: BP 171/77
[2016-11-11 03:23] VITALS: BP 124/72
[2016-11-11 05:46] LABS: POINT-OF-CARE METER ID UU14174225
[2016-11-11 07:20] VITALS: BP 135/70
[2016-11-11 11:24] VITALS: BP 165/85
[2016-11-11 11:31] LABS: POINT-OF-CARE METER ID UU13113717
[2016-11-11 14:05] LABS: ANION GAP 7 MEQ/L (2-14); CHLORIDE 106 MEQ/L (99-109); GFR ESTIMATE (CALCULATED) > 59 mL/min/; POTASSIUM 3.3 MEQ/L (3.7-5.4); SAMPLE HEMOLYSIS CHECK 0; SAMPLE ICTERIC CHECK 0; SAMPLE LIPEMIA CHECK 0; UREA NITROGEN (BUN) 18 mg/dL (9-23)
[2016-11-11 14:06] LABS: GLUCOSE 261 mg/dL (70-99); SODIUM 144 MEQ/L (136-147)
[2016-11-11 15:22] VITALS: BP 167/89
[2016-11-11 16:39] LABS: POINT-OF-CARE METER ID UU14174225
[2016-11-11 20:07] VITALS: BP 194/91
[2016-11-11 20:07] LABS: ADD MIUA? YES; BILIRUBIN NEGATIVE; BLOOD LARGE; COLOR YELLOW ((YELLOW)); KETONES NEGATIVE; LEUKOCYTES NEGATIVE; NITRITE NEGATIVE; PROTEIN (STRIP) 100; UROBILINOGEN 0.2 MG/DL (0.2-1.0)
[2016-11-11 20:25] LABS: GLUCOSE (STRIP) 500
[2016-11-11 21:20] LABS: POINT-OF-CARE METER ID UU13113717
[2016-11-11 21:28] LABS: RED BLOOD CELLS TNTC /HPF (0-5)
[2016-11-11 21:29] LABS: BACTERIA 2+ /HPF; EPITHELIAL CELLS 1+ /HPF; MUCUS NONE SEEN /LPF; UCUL ADDED? YES; WHITE BLOOD CELLS 0-5 /HPF (0-5)
[2016-11-11 23:44] LABS: POINT-OF-CARE METER ID UU13113717
[2016-11-11 23:58] VITALS: BP 128/61
[2016-11-12] VITALS (7 sets, daily range): BP systolic 102–172; BP diastolic 60–87
[2016-11-12 06:03] LABS: POINT-OF-CARE METER ID UU14188625
[2016-11-12 10:23] LABS: ANION GAP 10 MEQ/L (2-14); CHLORIDE 103 MEQ/L (99-109); GFR ESTIMATE (CALCULATED) > 59 mL/min/; GLUCOSE 152 mg/dL (70-99); POTASSIUM 3.6 MEQ/L (3.7-5.4); SAMPLE HEMOLYSIS CHECK 0; SAMPLE ICTERIC CHECK 0; SAMPLE LIPEMIA CHECK 0; SODIUM 144 MEQ/L (136-147); UREA NITROGEN (BUN) 17 mg/dL (9-23)
[2016-11-12 10:51] LABS: HEMATOCRIT 32.1 % (36.0-46.0); MCH 25.3 PG (29.0-34.0); MCHC 30.8 G/DL (30.0-36.0); MCV 81.9 FL (83-99); MEAN PLAT.VOLUME 10.5 uM^3 (9.5-12.4); RBC DIS.WIDTH-SD 44.6 % (39-53); RED BLOOD COUNT 3.92 M/uL (3.80-5.20)
[2016-11-12 10:52] LABS: PLATELET COUNT 440 K/uL (156-360)
[2016-11-12 16:23] LABS: POINT-OF-CARE METER ID UU14174225
[2016-11-12 21:54] LABS: POINT-OF-CARE METER ID UU14188625
[2016-11-13 01:32] LABS: POINT-OF-CARE METER ID UU13113717
[2016-11-13 03:56] VITALS: BP 106/57
[2016-11-13 06:53] LABS: HEMATOCRIT 27.8 % (36.0-46.0); MCH 25.9 PG (29.0-34.0); MCHC 31.7 G/DL (30.0-36.0); MCV 81.8 FL (83-99); MEAN PLAT.VOLUME 10.1 uM^3 (9.5-12.4); PLATELET COUNT 372 K/uL (156-360); RBC DIS.WIDTH-CV 15.1 % (11.8-14.6); RBC DIS.WIDTH-SD 44.7 % (39-53); WHITE BLOOD COUNT 7.4 K/uL (4.1-10.2)
[2016-11-13 07:13] LABS: ANION GAP 9 MEQ/L (2-14); CHLORIDE 102 MEQ/L (99-109); GFR ESTIMATE (CALCULATED) > 59 mL/min/; POTASSIUM 3.3 MEQ/L (3.7-5.4); SAMPLE HEMOLYSIS CHECK 0; SAMPLE ICTERIC CHECK 0; SAMPLE LIPEMIA CHECK 0; SODIUM 143 MEQ/L (136-147); UREA NITROGEN (BUN) 18 mg/dL (9-23)
[2016-11-13 07:14] LABS: GLUCOSE 69 mg/dL (70-99)
[2016-11-13 08:14] VITALS: BP 114/73
[2016-11-13 12:44] LABS: POINT-OF-CARE METER ID UU13113717
[2016-11-13 12:50] VITALS: BP 116/70
[2016-11-13 16:29] VITALS: BP 118/68
[2016-11-13 16:54] LABS: POINT-OF-CARE METER ID UU13113717
[2016-11-13 20:06] VITALS: BP 121/67
[2016-11-13 21:47] LABS: POINT-OF-CARE METER ID UU14188625
[2016-11-13 23:22] LABS: POINT-OF-CARE METER ID UU14174225
[2016-11-13 23:55] VITALS: BP 146/72
[2016-11-14 03:43] VITALS: BP 135/65
[2016-11-14 05:38] LABS: POINT-OF-CARE METER ID UU14174225
[2016-11-14 06:00] LABS: HEMATOCRIT 26.6 % (36.0-46.0); MCH 25.4 PG (29.0-34.0); MCHC 31.2 G/DL (30.0-36.0); MCV 81.3 FL (83-99); MEAN PLAT.VOLUME 10.5 uM^3 (9.5-12.4); PLATELET COUNT 361 K/uL (156-360); RBC DIS.WIDTH-CV 14.8 % (11.8-14.6); RBC DIS.WIDTH-SD 43.6 % (39-53); RED BLOOD COUNT 3.27 M/uL (3.80-5.20); WHITE BLOOD COUNT 5.5 K/uL (4.1-10.2)
[2016-11-14 06:18] LABS: ANION GAP 6 MEQ/L (2-14); CHLORIDE 104 MEQ/L (99-109); POTASSIUM 3.7 MEQ/L (3.7-5.4); SAMPLE HEMOLYSIS CHECK 0; SAMPLE ICTERIC CHECK 0; SAMPLE LIPEMIA CHECK 0; SODIUM 140 MEQ/L (136-147)
[2016-11-14 06:37] LABS: GFR ESTIMATE (CALCULATED) > 59 mL/min/; UREA NITROGEN (BUN) 14 mg/dL (9-23)
[2016-11-14 06:38] LABS: GLUCOSE 145 mg/dL (70-99)
[2016-11-14 07:22] VITALS: BP 140/61
[2016-11-14 11:07] VITALS: BP 124/66
[2016-11-14 11:25] LABS: POINT-OF-CARE METER ID UU14174225
[2016-11-14] MEDS ORDERED: LEVEMIR100 UNIT/2 SC (11:45)
[2016-11-14] MEDS ORDERED: PANTOPRAZOLE SO40 MG PO (11:46)
[2016-11-14] MEDS ORDERED: METOCLOPRAMIDE10 MG PO (11:46)
== END 2016-11-14 13:08 | disposition home health service (06) | DRG 74 ==
LOC: EME 01:31 → EDOF 05:32 → ENRESERV 05:36 → 5WEST 08:06 → 5SOUTH 10:10 → ENRESERV 10:12 → 5SOUTH 20:05 → ENPENDDIS 11-14 → 5SOUTH 11-14 13:08
PROVIDERS: Emergency Medicine; Hospitalist; Nurse Practitioner Adult Health; Physician Assistant Medical
DX: E11.43 Type 2 diabetes mellitus with diabetic autonomic (poly)neuropathy (principal); E87.3 Alkalosis; E86.0 Dehydration; I16.0 Hypertensive urgency; E87.6 Hypokalemia; E11.21 Type 2 diabetes mellitus with diabetic nephropathy; K31.84 Gastroparesis; E11.65 Type 2 diabetes mellitus with hyperglycemia; Z87.440 Personal history of urinary (tract) infections; Z91.19 Patient's noncompliance with other medical treatment and regimen; E78.5 Hyperlipidemia, unspecified; I10 Essential (primary) hypertension; K21.0 Gastro-esophageal reflux disease with esophagitis; E87.0 Hyperosmolality and hypernatremia; D64.9 Anemia, unspecified; N13.30 Unspecified hydronephrosis; E66.9 Obesity, unspecified; Z68.37 Body mass index [BMI] 37.0-37.9, adult; Q62.5 Duplication of ureter
CPT/HCPCS: 36600; 70450; 74176; 74178; 80048; 80053; 81003; 82010; 82140; 82803; 82948; 83540; 83605; 83690; 83735; 84100; 84484; 85025; 85027; 87040; 87086; 99281; 99285; C9113; G0480; J0360; J0696; J1170; J1650; J1815; J2405; J2765; J3480; J7030; J7050

== ENCOUNTER 2017-02-08 16:37 | Inpatient (IN) | payer OTHER ==
[~2017-02-08] VITALS: Ht 162.6 cm; Wt 103.0 kg
[~2017-02-08 16:37] MED LIST changes: +AUGMENTIN875 MG PO; +GABAPENTIN400 MG PO
[2017-02-08 17:03] LABS: POINT-OF-CARE METER ID UU13113778
[2017-02-08 17:37] LABS: HEMATOCRIT 35.9 % (36.0-46.0); MCH 24.8 PG (29.0-34.0); MCHC 30.6 G/DL (30.0-36.0); MEAN PLAT.VOLUME 10.6 uM^3 (9.5-12.4); RBC DIS.WIDTH-CV 18.5 % (11.8-14.6); RBC DIS.WIDTH-SD 54.4 % (39-53)
[2017-02-08 17:38] LABS: PLATELET COUNT 270 K/uL (156-360); RED BLOOD COUNT 4.43 M/uL (3.80-5.20)
[2017-02-08 17:42] LABS: CHLORIDE 107 mEq/L (99-109); POTASSIUM 3.5 mEq/L (3.7-5.4); SODIUM 141 mEq/L (136-147)
[2017-02-08 17:44] LABS: GLUCOSE 158 mg/dL (70-99)
[2017-02-08 17:46] LABS: ANION GAP 9 MEQ/L (2-14); TOTAL BILIRUBIN 0.5 mg/dL (0.0-1.0)
[2017-02-08 17:48] LABS: ALKALINE PHOSPHATASE 120 IU/L (3-129); GFR ESTIMATE (CALCULATED) > 59 mL/min/
[2017-02-08 17:49] LABS: UREA NITROGEN (BUN) 22 mg/dL (9-23)
[2017-02-08 17:51] LABS: LIPASE 10 U/L (1.0-51.0)
[2017-02-08 18:02] LABS: QUANTITATIVE HCG < 4.0 MIU/ML
[2017-02-08 22:26] LABS: ADD MIUA? YES; BILIRUBIN NEGATIVE; BLOOD SMALL; COLOR YELLOW ((YELLOW)); GLUCOSE (STRIP) 150; KETONES NEGATIVE; LEUKOCYTES TRACE; NITRITE NEGATIVE; PROTEIN (STRIP) >=500; UROBILINOGEN 0.2 MG/DL (0.2-1.0)
[2017-02-08 22:27] LABS: POINT-OF-CARE METER ID UU13113702
[2017-02-08 22:38] LABS: BACTERIA RARE /HPF; EPITHELIAL CELLS 2+ /HPF; HYALINE CASTS 40-50 /LPF; MUCUS TRACE /LPF; UCUL ADDED? YES; WHITE BLOOD CELLS 20-30 /HPF (0-5)
[2017-02-09 00:18] LABS: POINT-OF-CARE METER ID UU14100415; POINT-OF-CARE USER ID 608261302
[2017-02-09 05:50] VITALS: BP 174/88
[2017-02-09 07:45] VITALS: BP 172/88
[2017-02-09 09:03] LABS: POINT-OF-CARE METER ID UU13113831
[2017-02-09 09:09] LABS: EOSINOPHIL (%) 0 % (0-5); HEMATOCRIT 33.6 % (36.0-46.0); IMMATURE GRANULOCYTE (%) 0.2 % (0.0-0.7); INSTRUMENT ABS NEUTROPHIL CT 3.8 K/uL; LYMPHOCYTE COUNT 0.5 K/uL (1.0-2.8); MCH 24.9 PG (29.0-34.0); MCHC 30.7 G/DL (30.0-36.0); MCV 81.4 FL (83-99); MEAN PLAT.VOLUME 10.5 uM^3 (9.5-12.4); MONOCYTE COUNT 0.2 K/uL (0-0.8); NEUTROPHIL (%) 83.5 % (45-76); NEUTROPHIL COUNT 3.8 K/uL (1.8-6.4); PLATELET COUNT 245 K/uL (156-360); RBC DIS.WIDTH-CV 18.6 % (11.8-14.6); RBC DIS.WIDTH-SD 54.9 % (39-53); RED BLOOD COUNT 4.13 M/uL (3.80-5.20); WHITE BLOOD COUNT 4.5 K/uL (4.1-10.2)
[2017-02-09 09:43] LABS: ANION GAP 11 MEQ/L (2-14); CHLORIDE 106 MEQ/L (99-109); GFR ESTIMATE (CALCULATED) > 59 mL/min/; GLUCOSE 309 mg/dL (70-99); POTASSIUM 3.4 MEQ/L (3.7-5.4); SAMPLE HEMOLYSIS CHECK 0; SAMPLE ICTERIC CHECK 0; SAMPLE LIPEMIA CHECK 0; SODIUM 141 MEQ/L (136-147); UREA NITROGEN (BUN) 23 mg/dL (9-23)
[2017-02-09 12:03] VITALS: BP 117/59
[2017-02-09 12:23] LABS: POINT-OF-CARE METER ID UU13113831
[2017-02-09 16:15] VITALS: BP 132/74
[2017-02-09 16:53] LABS: POINT-OF-CARE METER ID UU13113831
[2017-02-09 19:10] VITALS: BP 89/51
[2017-02-09 22:34] LABS: POINT-OF-CARE METER ID UU13113700
[2017-02-10 00:12] VITALS: BP 96/62
[2017-02-10 03:36] VITALS: BP 113/66
[2017-02-10 05:32] LABS: EOSINOPHIL (%) 0.7 % (0-5); IMMATURE GRANULOCYTE (%) 0.2 % (0.0-0.7); INSTRUMENT ABS NEUTROPHIL CT 3.5 K/uL; LYMPHOCYTE COUNT 1.8 K/uL (1.0-2.8); MCH 25.5 PG (29.0-34.0); MCHC 30.3 G/DL (30.0-36.0); MCV 84.2 FL (83-99); MEAN PLAT.VOLUME 10.7 uM^3 (9.5-12.4); MONOCYTE (%) 6.6 % (3-12); MONOCYTE COUNT 0.4 K/uL (0-0.8); NEUTROPHIL COUNT 3.5 K/uL (1.8-6.4); PLATELET COUNT 219 K/uL (156-360); RBC DIS.WIDTH-CV 19.2 % (11.8-14.6); RBC DIS.WIDTH-SD 58.7 % (39-53); RED BLOOD COUNT 3.68 M/uL (3.80-5.20); WHITE BLOOD COUNT 5.7 K/uL (4.1-10.2)
[2017-02-10 06:15] LABS: ANION GAP 7 MEQ/L (2-14); CHLORIDE 102 MEQ/L (99-109); GLUCOSE 165 mg/dL (70-99); SAMPLE HEMOLYSIS CHECK 0; SAMPLE ICTERIC CHECK 0; SAMPLE LIPEMIA CHECK 0; SODIUM 135 MEQ/L (136-147); UREA NITROGEN (BUN) 34 mg/dL (9-23)
[2017-02-10 06:20] LABS: GFR ESTIMATE (CALCULATED) 29 mL/min/; POTASSIUM 4.1 MEQ/L (3.7-5.4)
[2017-02-10 08:30] VITALS: BP 114/70
[2017-02-10 11:18] LABS: ANION GAP 9 MEQ/L (2-14); CHLORIDE 106 MEQ/L (99-109); GFR ESTIMATE (CALCULATED) 40 mL/min/; GLUCOSE 207 mg/dL (70-99); POTASSIUM 3.5 MEQ/L (3.7-5.4); SAMPLE HEMOLYSIS CHECK 0; SAMPLE ICTERIC CHECK 0; SAMPLE LIPEMIA CHECK 0; SODIUM 138 MEQ/L (136-147); UREA NITROGEN (BUN) 29 mg/dL (9-23)
[2017-02-10 11:47] VITALS: BP 129/71
[2017-02-10 12:25] LABS: POINT-OF-CARE METER ID UU14162513
[2017-02-10 15:36] VITALS: BP 107/61
[2017-02-10 17:39] LABS: POINT-OF-CARE METER ID UU13113831
[2017-02-10 18:39] LABS: C DIFF TOXIN NEGATIVE (NEGATIVE)
[2017-02-10 18:41] LABS: PROBE CHECK PASS; SPECIMEN PROCESSING CONTROL PASS
[2017-02-10 19:30] VITALS: BP 109/55
[2017-02-10 21:32] LABS: POINT-OF-CARE METER ID UU14162513
[2017-02-11] VITALS: BP 96/51
[2017-02-11 04:00] VITALS: BP 98/54
[2017-02-11 05:20] LABS: HEMATOCRIT 32.3 % (36.0-46.0); MCH 25.3 PG (29.0-34.0); MCHC 29.4 G/DL (30.0-36.0); MCV 86.1 FL (83-99); MEAN PLAT.VOLUME 10.3 uM^3 (9.5-12.4); PLATELET COUNT 235 K/uL (156-360); RBC DIS.WIDTH-CV 18.6 % (11.8-14.6); RBC DIS.WIDTH-SD 58.3 % (39-53); RED BLOOD COUNT 3.75 M/uL (3.80-5.20); WHITE BLOOD COUNT 4.3 K/uL (4.1-10.2)
[2017-02-11 05:46] LABS: ANION GAP 7 MEQ/L (2-14); CHLORIDE 109 MEQ/L (99-109); GFR ESTIMATE (CALCULATED) 52 mL/min/; GLUCOSE 92 mg/dL (70-99); POTASSIUM 4.3 MEQ/L (3.7-5.4); SAMPLE HEMOLYSIS CHECK 0; SAMPLE ICTERIC CHECK 0; SAMPLE LIPEMIA CHECK 0; SODIUM 141 MEQ/L (136-147); UREA NITROGEN (BUN) 31 mg/dL (9-23)
[2017-02-11 11:46] VITALS: BP 116/75
[2017-02-11 11:56] LABS: POINT-OF-CARE METER ID UU14162513
== END 2017-02-11 14:50 | disposition home health service (06) | DRG 684 ==
LOC: EME 16:37 → EDOF 02-09 03:22 → ENRESERV 02-09 03:34 → 5WEST 02-09 05:20 → ENRESERV 02-10 08:08 → CANRESERV 02-10 08:08 → 5WEST 02-11 14:50
PROVIDERS: Emergency Medicine; Family Medicine; Hospitalist; Internal Medicine; Nurse Practitioner Adult Health
DX: N17.9 Acute kidney failure, unspecified (principal); E86.0 Dehydration; E87.6 Hypokalemia; N32.0 Bladder-neck obstruction; N13.30 Unspecified hydronephrosis; E11.43 Type 2 diabetes mellitus with diabetic autonomic (poly)neuropathy; K31.84 Gastroparesis; R19.7 Diarrhea, unspecified; E11.65 Type 2 diabetes mellitus with hyperglycemia; E11.621 Type 2 diabetes mellitus with foot ulcer; L97.519 Non-pressure chronic ulcer of other part of right foot with unspecified severity; E11.628 Type 2 diabetes mellitus with other skin complications; L08.9 Local infection of the skin and subcutaneous tissue, unspecified; E78.5 Hyperlipidemia, unspecified; I10 Essential (primary) hypertension; D64.9 Anemia, unspecified; K21.9 Gastro-esophageal reflux disease without esophagitis; F41.9 Anxiety disorder, unspecified; M54.30 Sciatica, unspecified side; E66.9 Obesity, unspecified; Z88.5 Allergy status to narcotic agent; Z68.38 Body mass index [BMI] 38.0-38.9, adult; Z79.4 Long term (current) use of insulin
CPT/HCPCS: 70496; 70498; 71010; 74000; 76770; 80048; 80048 91; 80053; 81003; 82948; 83690; 84702; 85025; 85027; 87086; 87177; 87329; 87493; 99281; 99285; C9113; G0378; J1630; J1644; J1650; J1815; J2405; J2765; J7030; J7040

== ENCOUNTER 2017-09-19 13:13 | Observation (INO) | payer OTHER ==
[~2017-09-19] VITALS: Ht 167.6 cm; Wt 115.3 kg
[~2017-09-19 13:13] MED LIST changes: -GABAPENTIN400 MG PO; +NEURONTIN600 MG PO
[2017-09-19 14:05] LABS: CARBON DIOXIDE (BICARBONATE) 25.5 MEQ/L (20-31)
[2017-09-19 14:13] LABS: HEMATOCRIT 34.5 % (36.0-46.0); HEMOGLOBIN 11.8 G/DL (11.9-15.5); MCH 27.1 PG (29.0-34.0); MCHC 34.2 G/DL (30.0-36.0); MCV 79.1 FL (83-99); PLATELET COUNT 246 K/uL (156-360); RBC DIS.WIDTH-CV 13.7 % (11.8-14.6); RBC DIS.WIDTH-SD 38.9 % (39-53); RED BLOOD COUNT 4.36 M/uL (3.80-5.20); WHITE BLOOD COUNT 7.2 K/uL (4.1-10.2)
[2017-09-19 14:19] LABS: ALBUMIN 3.8 g/dL (3.2-4.8); CHLORIDE 105 mEq/L (99-109); POTASSIUM 4.2 mEq/L (3.7-5.4); SODIUM 139 mEq/L (136-147)
[2017-09-19 14:22] LABS: GLUCOSE 338 mg/dL (70-99); TOTAL PROTEIN 7.3 g/dL (6.4-8.3)
[2017-09-19 14:23] LABS: TOTAL BILIRUBIN 0.6 mg/dL (0.0-1.0)
[2017-09-19 14:25] LABS: ALKALINE PHOSPHATASE 183 IU/L (3-129); CREATININE 1.2 mg/dL (0.6-1.3); GFR ESTIMATE (CALCULATED) 52 mL/min/
[2017-09-19 14:26] LABS: UREA NITROGEN (BUN) 28 mg/dL (9-23)
[2017-09-19 14:27] LABS: AST (GOT) 14 IU/L (2-34)
[2017-09-19 14:28] LABS: ALT (GPT) 19 IU/L (3-49)
[2017-09-19 14:29] LABS: LIPASE 17 U/L (1.0-51.0)
[2017-09-19 14:35] LABS: QUANTITATIVE HCG < 4.0 MIU/ML
[2017-09-19 15:26] LABS: TROP-I INTERPRETATION NEGATIVE; TROPONIN-I < 0.01 ng/mL (0.0-0.30)
[2017-09-19] MEDS ORDERED: NOVOLOG100 UNIT/1 SC ×2 (16:49→16:50)
[2017-09-19] MEDS ORDERED: REGLAN10 MG PO (16:51)
[2017-09-19] MEDS ORDERED: PHENERGAN25 MG PR (16:52)
[2017-09-19] MEDS ORDERED: ATORVASTATIN CA80 MG PO (16:54)
[2017-09-19] MEDS ORDERED: MOBIC15 MG PO (16:54)
[2017-09-19] MEDS ORDERED: BASAGLAR K100 UNIT/1 SC (16:54)
[2017-09-19 18:34] VITALS: BP 220/116
[2017-09-19 19:12] LABS: COMMENTS - BLOOD GASES C+; FI02 21 %; SITE LR; pH 7.44 (7.35-7.45)
[2017-09-19 19:13] LABS: BASE EXCESS 0 mEq/L (-3 to +3); BICARBONATE 23.8 mEq/L (22-26); CARBOXY HGB 1.1 % (0-5); METHEMOGLOBIN 0.7 % (0-1.5); O2 SATURATION (CALCULATED) 94.2 % (95-99); PCO2 35 mm Hg (35-45); PO2 77 mm Hg (80-100)
[2017-09-19 19:20] VITALS: BP 178/120
[2017-09-19 19:36] LABS: ALBUMIN 3.7 G/DL (3.2-4.8); CHLORIDE 104 MEQ/L (99-109); MAGNESIUM 1.5 mg/dl (1.3-2.7); POTASSIUM 4.1 MEQ/L (3.7-5.4); SODIUM 138 MEQ/L (136-147); TOTAL BILIRUBIN 0.5 MG/DL (0.0-1.0)
[2017-09-19 19:41] LABS: ALKALINE PHOSPHATASE 159 IU/L (3-129); ALT (GPT) 14 IU/L (3-49); AST (GOT) 13 IU/L (2-34); CREATININE 0.8 MG/DL (0.6-1.3); GFR ESTIMATE (CALCULATED) > 59 mL/min/; GLUCOSE 362 mg/dL (70-99); LIPASE 9 U/L (1.0-51.0); UREA NITROGEN (BUN) 22 mg/dL (9-23)
[2017-09-19 20:00] VITALS: BP 164/112
[2017-09-20 04:44] VITALS: BP 187/95
[2017-09-20 05:55] LABS: CHLORIDE 107 MEQ/L (99-109); CREATININE 0.9 MG/DL (0.6-1.3); GFR ESTIMATE (CALCULATED) > 59 mL/min/; GLUCOSE 311 mg/dL (70-99); POTASSIUM 3.8 MEQ/L (3.7-5.4); SODIUM 140 MEQ/L (136-147); UREA NITROGEN (BUN) 26 mg/dL (9-23)
[2017-09-20 06:23] LABS: HEMATOCRIT 38.4 % (36.0-46.0); HEMOGLOBIN 11.8 G/DL (11.9-15.5); MCH 26.3 PG (29.0-34.0); MCHC 30.7 G/DL (30.0-36.0); PLATELET COUNT 241 K/uL (156-360); RBC DIS.WIDTH-CV 14.1 % (11.8-14.6); RBC DIS.WIDTH-SD 43.8 % (39-53); RED BLOOD COUNT 4.49 M/uL (3.80-5.20); WHITE BLOOD COUNT 6.8 K/uL (4.1-10.2)
[2017-09-20 06:26] LABS: MCV 85.5 FL (83-99)
[2017-09-20 08:45] VITALS: BP 162/84
[2017-09-20 09:50] LABS: HEMOGLOBIN A1c (GLYCOHEMOGLOB) 8.3 % (Below 5.7)
[2017-09-20 12:38] VITALS: BP 159/84
[2017-09-20] MEDS ORDERED: PANTOPRAZOLE SO40 MG PO (14:25)
[2017-09-20] MEDS ORDERED: METOCLOPRAMIDE10 MG PO (14:26)
[2017-09-20 15:27] VITALS: BP 168/89
== END 2017-09-20 17:53 | disposition home or self-care (01) ==
LOC: EME 13:13 → 4SOUTH 16:36 → ENRESERV 16:36 → EDOF 16:36 → ENRESERV 17:16 → 4SOUTH 18:06
PROVIDERS: Hospitalist; Nurse Practitioner Family; Physician Assistant Medical
DX: R11.2 Nausea with vomiting, unspecified (principal); E86.0 Dehydration; E11.43 Type 2 diabetes mellitus with diabetic autonomic (poly)neuropathy; K31.84 Gastroparesis; E11.65 Type 2 diabetes mellitus with hyperglycemia; I16.0 Hypertensive urgency; I10 Essential (primary) hypertension; E78.5 Hyperlipidemia, unspecified; D64.9 Anemia, unspecified; K21.9 Gastro-esophageal reflux disease without esophagitis; R10.10 Upper abdominal pain, unspecified; R74.8 Abnormal levels of other serum enzymes; Z91.19 Patient's noncompliance with other medical treatment and regimen; Z91.14 Patient's other noncompliance with medication regimen; Z90.710 Acquired absence of both cervix and uterus; Z83.3 Family history of diabetes mellitus; Z86.19 Personal history of other infectious and parasitic diseases; Z88.8 Allergy status to other drugs, medicaments and biological substances; Z88.5 Allergy status to narcotic agent; Z91.011 Allergy to milk products; Z79.4 Long term (current) use of insulin
CPT/HCPCS: 36600; 74018; 80048; 80053; 81003; 82010; 82803; 82948; 83036; 83690; 83735; 84484; 84702; 85027; 93005; 99281; 99285; C9113; G0378; J0360; J1200; J1630; J1644; J1815; J2405; J2765; J3475; J7030

== ENCOUNTER 2017-09-30 14:19 | Inpatient (IN) | payer OTHER ==
[~2017-09-30] VITALS: Ht 162.6 cm; Wt 126.7 kg
[~2017-09-30 14:19] MED LIST changes: +BASAGLAR K100 UNIT/1 SC; +MOBIC15 MG PO
[2017-09-30 15:00] LABS: HEMATOCRIT 33.7 % (36.0-46.0); HEMOGLOBIN 11.5 G/DL (11.9-15.5); MCH 26.7 PG (29.0-34.0); MCHC 34.1 G/DL (30.0-36.0); RBC DIS.WIDTH-CV 14.2 % (11.8-14.6); RBC DIS.WIDTH-SD 39.8 % (39-53); WHITE BLOOD COUNT 9.1 K/uL (4.1-10.2)
[2017-09-30 15:01] LABS: MCV 78.4 FL (83-99); PLATELET COUNT 330 K/uL (156-360)
[2017-09-30 15:26] LABS: ALBUMIN 3.7 G/DL (3.2-4.8); CHLORIDE 97 MEQ/L (99-109); POTASSIUM 4.1 MEQ/L (3.7-5.4); SODIUM 134 MEQ/L (136-147); TOTAL BILIRUBIN 0.6 MG/DL (0.0-1.0)
[2017-09-30 15:35] LABS: TROP-I INTERPRETATION NEGATIVE
[2017-09-30 15:46] LABS: ALKALINE PHOSPHATASE 165 IU/L (3-129); ALT (GPT) 16 IU/L (3-49); AST (GOT) 14 IU/L (2-34); GFR ESTIMATE (CALCULATED) > 59 mL/min/; GLUCOSE 533 mg/dL (70-99); TOTAL PROTEIN 7.7 G/DL (6.4-8.3); UREA NITROGEN (BUN) 28 mg/dL (9-23)
[2017-09-30 16:03] LABS: QUANTITATIVE HCG < 4.0 MIU/ML
[2017-09-30 16:30] VITALS: BP 210/110
[2017-09-30 18:22] LABS: APPEARANCE SL.HAZY ((CLEAR)); BILIRUBIN NEGATIVE; BLOOD SMALL; COLOR YELLOW ((YELLOW)); GLUCOSE (STRIP) >=500; KETONES 80; LEUKOCYTES TRACE; NITRITE NEGATIVE; PROTEIN (STRIP) 100; SPECIFIC GRAVITY 1.022 (1.000-1.030); UROBILINOGEN 0.2 MG/DL (0.2-1.0)
[2017-09-30 18:29] LABS: BACTERIA RARE /HPF; EPITHELIAL CELLS RARE /HPF; MUCUS NONE SEEN /LPF; RED BLOOD CELLS 0-5 /HPF (0-5); UCUL ADDED? YES; WHITE BLOOD CELLS 20-30 /HPF (0-5)
[2017-09-30 19:00] VITALS: BP 197/99
[2017-09-30 20:00] VITALS: BP 155/97
[2017-09-30 20:34] LABS: POTASSIUM 3.6 MEQ/L (3.7-5.4)
[2017-09-30 20:40] LABS: CREATININE 0.8 MG/DL (0.6-1.3); GFR ESTIMATE (CALCULATED) > 59 mL/min/; UREA NITROGEN (BUN) 24 mg/dL (9-23)
[2017-09-30 20:44] LABS: CHLORIDE 107 MEQ/L (99-109); GLUCOSE 442 mg/dL (70-99); SODIUM 141 MEQ/L (136-147)
[2017-09-30 21:00] VITALS: BP 158/84
[2017-09-30 22:00] VITALS: BP 200/110
[2017-09-30 23:00] VITALS: BP 177/116
[2017-10-01] VITALS (25 sets, daily range): BP systolic 117–216; BP diastolic 70–144
[2017-10-01 01:07] LABS: CHLORIDE 111 mEq/L (99-109); POTASSIUM 4.1 mEq/L (3.7-5.4); SODIUM 145 mEq/L (136-147)
[2017-10-01 01:09] LABS: GLUCOSE 342 mg/dL (70-99)
[2017-10-01 01:13] LABS: CREATININE 1.2 mg/dL (0.6-1.3); GFR ESTIMATE (CALCULATED) 52 mL/min/; PHOSPHORUS 2.8 mg/dL (2.5-4.9)
[2017-10-01 01:14] LABS: UREA NITROGEN (BUN) 26 mg/dL (9-23)
[2017-10-01 04:34] LABS: BASOPHIL (%) 0.3 % (0-1); EOSINOPHIL (%) 0 % (0-5); HEMATOCRIT 30.5 % (36.0-46.0); HEMOGLOBIN 10.1 G/DL (11.9-15.5); IMMATURE GRANULOCYTE (%) 1.3 % (0.0-0.7); LYMPHOCYTE (%) 9.8 % (15-42); LYMPHOCYTE COUNT 1.2 K/uL (1.0-2.8); MCH 26.9 PG (29.0-34.0); MCHC 33.1 G/DL (30.0-36.0); MCV 81.3 FL (83-99); MONOCYTE (%) 7.3 % (3-12); MONOCYTE COUNT 0.9 K/uL (0-0.8); NEUTROPHIL (%) 81.3 % (45-76); NEUTROPHIL COUNT 9.7 K/uL (1.8-6.4); PLATELET COUNT 306 K/uL (156-360); RBC DIS.WIDTH-CV 14.6 % (11.8-14.6); RBC DIS.WIDTH-SD 42.4 % (39-53); RED BLOOD COUNT 3.75 M/uL (3.80-5.20); WHITE BLOOD COUNT 11.9 K/uL (4.1-10.2)
[2017-10-01 04:45] LABS: CHLORIDE 113 mEq/L (99-109); SODIUM 147 mEq/L (136-147)
[2017-10-01 04:47] LABS: GLUCOSE 203 mg/dL (70-99)
[2017-10-01 04:51] LABS: GFR ESTIMATE (CALCULATED) > 59 mL/min/; PHOSPHORUS 2.3 mg/dL (2.5-4.9)
[2017-10-01 04:52] LABS: UREA NITROGEN (BUN) 27 mg/dL (9-23)
[2017-10-01 08:18] LABS: AMYLASE 25 IU/L (1-118)
[2017-10-01 08:27] LABS: LIPASE 11 U/L (1.0-51.0)
[2017-10-01 09:11] LABS: CHLORIDE 113 MEQ/L (99-109); CREATININE 0.9 MG/DL (0.6-1.3); GFR ESTIMATE (CALCULATED) > 59 mL/min/; GLUCOSE 189 mg/dL (70-99); POTASSIUM 3.8 MEQ/L (3.7-5.4); SODIUM 147 MEQ/L (136-147); UREA NITROGEN (BUN) 26 mg/dL (9-23)
[2017-10-01 11:14] LABS: HEMOGLOBIN A1c (GLYCOHEMOGLOB) 10.3 % (Below 5.7)
[2017-10-01 12:46] LABS: CHLORIDE 114 MEQ/L (99-109); CREATININE 0.9 MG/DL (0.6-1.3); GFR ESTIMATE (CALCULATED) > 59 mL/min/; GLUCOSE 140 mg/dL (70-99); PHOSPHORUS 2.4 mg/dL (2.5-4.9); POTASSIUM 3.3 MEQ/L (3.7-5.4); SODIUM 146 MEQ/L (136-147); UREA NITROGEN (BUN) 24 mg/dL (9-23)
[2017-10-01 16:41] LABS: CHLORIDE 111 MEQ/L (99-109); CREATININE 0.9 MG/DL (0.6-1.3); GFR ESTIMATE (CALCULATED) > 59 mL/min/; GLUCOSE 142 mg/dL (70-99); POTASSIUM 3.5 MEQ/L (3.7-5.4); SODIUM 143 MEQ/L (136-147); UREA NITROGEN (BUN) 25 mg/dL (9-23)
[2017-10-01 16:54] LABS: PHOSPHORUS 3.3 mg/dL (2.5-4.9)
[2017-10-02] VITALS (27 sets, daily range): BP systolic 110–214; BP diastolic 54–120
[2017-10-02 00:55] LABS: CHLORIDE 110 MEQ/L (99-109); CREATININE 0.9 MG/DL (0.6-1.3); GFR ESTIMATE (CALCULATED) > 59 mL/min/; GLUCOSE 176 mg/dL (70-99); POTASSIUM 3.5 MEQ/L (3.7-5.4); SODIUM 143 MEQ/L (136-147); UREA NITROGEN (BUN) 23 mg/dL (9-23)
[2017-10-02 06:08] LABS: CHLORIDE 108 MEQ/L (99-109); CREATININE 0.8 MG/DL (0.6-1.3); GFR ESTIMATE (CALCULATED) > 59 mL/min/; GLUCOSE 185 mg/dL (70-99); POTASSIUM 3.6 MEQ/L (3.7-5.4); SODIUM 141 MEQ/L (136-147); UREA NITROGEN (BUN) 20 mg/dL (9-23)
[2017-10-02 13:01] LABS: CHLORIDE 108 MEQ/L (99-109); CREATININE 0.7 MG/DL (0.6-1.3); GFR ESTIMATE (CALCULATED) > 59 mL/min/; GLUCOSE 179 mg/dL (70-99); POTASSIUM 3.8 MEQ/L (3.7-5.4); SODIUM 138 MEQ/L (136-147); UREA NITROGEN (BUN) 16 mg/dL (9-23)
[2017-10-02 17:39] LABS: CHLORIDE 107 MEQ/L (99-109); CREATININE 0.8 MG/DL (0.6-1.3); GFR ESTIMATE (CALCULATED) > 59 mL/min/; GLUCOSE 160 mg/dL (70-99); MAGNESIUM 2.2 mg/dl (1.3-2.7); PHOSPHORUS 2.9 mg/dL (2.5-4.9); POTASSIUM 3.8 MEQ/L (3.7-5.4); SODIUM 139 MEQ/L (136-147); UREA NITROGEN (BUN) 17 mg/dL (9-23)
[2017-10-03] VITALS (29 sets, daily range): BP systolic 112–158; BP diastolic 49–133
[2017-10-03 01:11] LABS: CHLORIDE 111 mEq/L (99-109); POTASSIUM 3.7 mEq/L (3.7-5.4); SODIUM 138 mEq/L (136-147)
[2017-10-03 01:13] LABS: GLUCOSE 164 mg/dL (70-99)
[2017-10-03 01:17] LABS: CREATININE 0.9 mg/dL (0.6-1.3); GFR ESTIMATE (CALCULATED) > 59 mL/min/
[2017-10-03 01:18] LABS: UREA NITROGEN (BUN) 18 mg/dL (9-23)
[2017-10-03 07:02] LABS: CHLORIDE 108 MEQ/L (99-109); CREATININE 0.7 MG/DL (0.6-1.3); GFR ESTIMATE (CALCULATED) > 59 mL/min/; GLUCOSE 164 mg/dL (70-99); MAGNESIUM 2.1 mg/dl (1.3-2.7); PHOSPHORUS 2.9 mg/dL (2.5-4.9); POTASSIUM 4.2 MEQ/L (3.7-5.4); SODIUM 138 MEQ/L (136-147); UREA NITROGEN (BUN) 17 mg/dL (9-23)
[2017-10-03 13:37] LABS: CHLORIDE 107 MEQ/L (99-109); CREATININE 0.7 MG/DL (0.6-1.3); GFR ESTIMATE (CALCULATED) > 59 mL/min/; GLUCOSE 140 mg/dL (70-99); POTASSIUM 3.9 MEQ/L (3.7-5.4); SODIUM 137 MEQ/L (136-147); UREA NITROGEN (BUN) 17 mg/dL (9-23)
[2017-10-03 18:37] LABS: CHLORIDE 108 MEQ/L (99-109); CREATININE 0.7 MG/DL (0.6-1.3); GFR ESTIMATE (CALCULATED) > 59 mL/min/; GLUCOSE 140 mg/dL (70-99); POTASSIUM 3.7 MEQ/L (3.7-5.4); SODIUM 137 MEQ/L (136-147); UREA NITROGEN (BUN) 17 mg/dL (9-23)
[2017-10-04] VITALS (24 sets, daily range): BP systolic 79–154; BP diastolic 57–100
[2017-10-04 00:45] LABS: APPEARANCE CLOUDY ((CLEAR)); BILIRUBIN NEGATIVE; BLOOD SMALL; COLOR AMBER ((YELLOW)); GLUCOSE (STRIP) NEGATIVE; KETONES NEGATIVE; LEUKOCYTES LARGE; NITRITE NEGATIVE; PROTEIN (STRIP) 100; SPECIFIC GRAVITY 1.013 (1.000-1.030); UROBILINOGEN 0.2 MG/DL (0.2-1.0)
[2017-10-04 01:30] LABS: BACTERIA 1+ /HPF; EPITHELIAL CELLS 2+ /HPF; MUCUS 3+ /LPF; UCUL ADDED? YES; WHITE BLOOD CELLS TNTC /HPF (0-5)
[2017-10-04 06:39] LABS: CHLORIDE 109 MEQ/L (99-109); CREATININE 0.6 MG/DL (0.6-1.3); GFR ESTIMATE (CALCULATED) > 59 mL/min/; GLUCOSE 160 mg/dL (70-99); PHOSPHORUS 3.6 mg/dL (2.5-4.9); POTASSIUM 3.8 MEQ/L (3.7-5.4); SODIUM 136 MEQ/L (136-147); UREA NITROGEN (BUN) 16 mg/dL (9-23)
[2017-10-04 10:47] LABS: ALBUMIN 2.7 G/DL (3.2-4.8); ALT (GPT) 15 IU/L (3-49); AMYLASE 16 IU/L (1-118); AST (GOT) 16 IU/L (2-34); CHLORIDE 108 MEQ/L (99-109); CREATININE 0.6 MG/DL (0.6-1.3); GFR ESTIMATE (CALCULATED) > 59 mL/min/; GLUCOSE 227 mg/dL (70-99); HIGH-SENS C-REACTIVE PROTEIN 1.03 MG/DL (0.02-0.20); LIPASE 12 U/L (1.0-51.0); POTASSIUM 3.8 MEQ/L (3.7-5.4); SODIUM 135 MEQ/L (136-147); UREA NITROGEN (BUN) 14 mg/dL (9-23)
[2017-10-04 10:48] LABS: ALKALINE PHOSPHATASE 107 IU/L (3-129); TOTAL BILIRUBIN 0.4 MG/DL (0.0-1.0); TOTAL PROTEIN 5.2 G/DL (6.4-8.3)
[2017-10-04 19:32] LABS: BASOPHIL (%) 0.4 % (0-1); EOSINOPHIL (%) 1.9 % (0-5); EOSINOPHIL COUNT 0.1 K/uL (0-0.3); HEMATOCRIT 28.1 % (36.0-46.0); HEMOGLOBIN 9.2 G/DL (11.9-15.5); IMMATURE GRANULOCYTE (%) 0.3 % (0.0-0.7); LYMPHOCYTE (%) 25.8 % (15-42); LYMPHOCYTE COUNT 1.8 K/uL (1.0-2.8); MCH 27.2 PG (29.0-34.0); MCHC 32.7 G/DL (30.0-36.0); MCV 83.1 FL (83-99); MONOCYTE (%) 7.7 % (3-12); MONOCYTE COUNT 0.5 K/uL (0-0.8); NEUTROPHIL (%) 63.9 % (45-76); NEUTROPHIL COUNT 4.5 K/uL (1.8-6.4); NRBC (%) 0.3 /100 WBC (0-0); PLATELET COUNT 255 K/uL (156-360); RBC DIS.WIDTH-CV 14.4 % (11.8-14.6); RBC DIS.WIDTH-SD 43.3 % (39-53); RED BLOOD COUNT 3.38 M/uL (3.80-5.20)
[2017-10-04 20:12] LABS: CHLORIDE 106 MEQ/L (99-109); CREATININE 0.7 MG/DL (0.6-1.3); GFR ESTIMATE (CALCULATED) > 59 mL/min/; GLUCOSE 254 mg/dL (70-99); MAGNESIUM 1.7 mg/dl (1.3-2.7); PHOSPHORUS 3.1 mg/dL (2.5-4.9); POTASSIUM 3.6 MEQ/L (3.7-5.4); SODIUM 135 MEQ/L (136-147); UREA NITROGEN (BUN) 14 mg/dL (9-23)
[2017-10-05] VITALS (18 sets, daily range): BP systolic 11–124; BP diastolic 44–69
[2017-10-05 05:34] LABS: HEMATOCRIT 26.9 % (36.0-46.0); HEMOGLOBIN 8.4 G/DL (11.9-15.5); MCH 26.8 PG (29.0-34.0); MCHC 31.2 G/DL (30.0-36.0); MCV 85.7 FL (83-99); PLATELET COUNT 247 K/uL (156-360); RBC DIS.WIDTH-CV 14.6 % (11.8-14.6); RBC DIS.WIDTH-SD 45.1 % (39-53); RED BLOOD COUNT 3.14 M/uL (3.80-5.20); WHITE BLOOD COUNT 5.4 K/uL (4.1-10.2)
[2017-10-05 06:13] LABS: CREATININE 0.9 MG/DL (0.6-1.3); GFR ESTIMATE (CALCULATED) > 59 mL/min/; MAGNESIUM 1.8 mg/dl (1.3-2.7); PHOSPHORUS 4.1 mg/dL (2.5-4.9); POTASSIUM 3.2 MEQ/L (3.7-5.4); UREA NITROGEN (BUN) 20 mg/dL (9-23)
[2017-10-05 06:46] LABS: CHLORIDE 85 MEQ/L (99-109); GLUCOSE 232 mg/dL (70-99)
[2017-10-05 07:15] LABS: SODIUM 139 MEQ/L (136-147)
[2017-10-05 07:42] LABS: HIGH-SENS C-REACTIVE PROTEIN 2.31 MG/DL (0.02-0.20)
[2017-10-05 17:34] LABS: CREATININE 1.3 MG/DL (0.6-1.3); GFR ESTIMATE (CALCULATED) 47 mL/min/; GLUCOSE 167 mg/dL (70-99); PHOSPHORUS 4.1 mg/dL (2.5-4.9); SODIUM 137 MEQ/L (136-147); UREA NITROGEN (BUN) 27 mg/dL (9-23)
[2017-10-05 17:35] LABS: CHLORIDE 109 MEQ/L (99-109); MAGNESIUM 2.4 mg/dl (1.3-2.7); POTASSIUM 4.3 MEQ/L (3.7-5.4)
[2017-10-06 04:40] LABS: C DIFF TOXIN NEGATIVE (NEGATIVE)
[2017-10-06 07:02] LABS: BASOPHIL (%) 0.4 % (0-1); EOSINOPHIL (%) 1.7 % (0-5); EOSINOPHIL COUNT 0.1 K/uL (0-0.3); HEMATOCRIT 25.1 % (36.0-46.0); HEMOGLOBIN 7.8 G/DL (11.9-15.5); IMMATURE GRANULOCYTE (%) 0.5 % (0.0-0.7); LYMPHOCYTE (%) 22.3 % (15-42); LYMPHOCYTE COUNT 1.7 K/uL (1.0-2.8); MCH 26.7 PG (29.0-34.0); MCHC 31.1 G/DL (30.0-36.0); MONOCYTE (%) 6.8 % (3-12); MONOCYTE COUNT 0.5 K/uL (0-0.8); NEUTROPHIL (%) 68.3 % (45-76); NEUTROPHIL COUNT 5.3 K/uL (1.8-6.4); PLATELET COUNT 219 K/uL (156-360); RBC DIS.WIDTH-CV 15.1 % (11.8-14.6); RBC DIS.WIDTH-SD 46.7 % (39-53); RED BLOOD COUNT 2.92 M/uL (3.80-5.20); WHITE BLOOD COUNT 7.8 K/uL (4.1-10.2)
[2017-10-06 07:13] VITALS: BP 141/87
[2017-10-06 07:36] LABS: ALBUMIN 2.5 G/DL (3.2-4.8); ALKALINE PHOSPHATASE 100 IU/L (3-129); ALT (GPT) 19 IU/L (3-49); AST (GOT) 16 IU/L (2-34); CHLORIDE 111 MEQ/L (99-109); CREATININE 1.3 MG/DL (0.6-1.3); GFR ESTIMATE (CALCULATED) 47 mL/min/; GLUCOSE 169 mg/dL (70-99); POTASSIUM 4.2 MEQ/L (3.7-5.4); SODIUM 138 MEQ/L (136-147); TOTAL PROTEIN 4.8 G/DL (6.4-8.3); UREA NITROGEN (BUN) 32 mg/dL (9-23)
[2017-10-06 07:37] LABS: TOTAL BILIRUBIN 0.2 MG/DL (0.0-1.0)
[2017-10-06] MEDS ORDERED: NIFEDIPINE ER60 MG PO (12:04)
[2017-10-06] MEDS ORDERED: BASAGLAR K100 UNIT/1 SC (12:16)
[2017-10-06] MEDS ORDERED: AUGMENTIN875 MG PO (12:17)
[2017-10-06 13:47] VITALS: BP 107/59
== END 2017-10-06 14:42 | disposition home or self-care (01) | DRG 639 ==
LOC: EME 14:19 → EDOF 16:39 → 4WEST 16:39 → EDOF 16:39 → ENRESERV 16:45 → 4WEST 18:24 → ENRESERV 10-05 12:52 → 4EAST 10-05 14:52
PROVIDERS: Emergency Medicine; Hospitalist; Internal Medicine; Internal Medicine Critical Care Medicine; Specialist; Student in an Organized Health Care Education/Training Program
DX: E10.10 Type 1 diabetes mellitus with ketoacidosis without coma (principal); I10 Essential (primary) hypertension; E66.9 Obesity, unspecified; E11.43 Type 2 diabetes mellitus with diabetic autonomic (poly)neuropathy; K31.84 Gastroparesis; E78.5 Hyperlipidemia, unspecified; F32.9 Major depressive disorder, single episode, unspecified; E66.01 Morbid (severe) obesity due to excess calories; G89.29 Other chronic pain; M54.9 Dorsalgia, unspecified; Z87.440 Personal history of urinary (tract) infections; Z79.4 Long term (current) use of insulin; Z90.710 Acquired absence of both cervix and uterus; E10.43 Type 1 diabetes mellitus with diabetic autonomic (poly)neuropathy
CPT/HCPCS: 71045; 76705; 80048; 80048 91; 80053; 80170; 81003; 82010; 82150; 82800; 82948; 83036; 83690; 83735; 84100; 84145 90; 84484; 84702; 85025; 85027; 86141; 87077; 87086; 87186; 87493; 87641; 93005; 94799; 99281; 99285; C9113; J0696; J1644; J1815; J1940; J2405; J2765; J3475; J3480; J7030; J7040; J7050; S0028

== ENCOUNTER 2017-10-21 07:18 | Inpatient (IN) | payer OTHER ==
[~2017-10-21] VITALS: Ht 162.6 cm; Wt 119.8 kg
[~2017-10-21 07:18] MED LIST changes: +NIFEDIPINE ER60 MG PO
[2017-10-21 08:19] LABS: HEMATOCRIT 31.2 % (36.0-46.0); HEMOGLOBIN 10.2 G/DL (11.9-15.5); MCH 26.7 PG (29.0-34.0); MCHC 32.7 G/DL (30.0-36.0); MCV 81.7 FL (83-99); PLATELET COUNT 255 K/uL (156-360); RBC DIS.WIDTH-CV 14.5 % (11.8-14.6); RBC DIS.WIDTH-SD 42.9 % (39-53); RED BLOOD COUNT 3.82 M/uL (3.80-5.20); WHITE BLOOD COUNT 4.9 K/uL (4.1-10.2)
[2017-10-21 08:29] LABS: ALBUMIN 3.5 g/dL (3.2-4.8); CHLORIDE 103 mEq/L (99-109); POTASSIUM 3.7 mEq/L (3.7-5.4); SODIUM 139 mEq/L (136-147)
[2017-10-21 08:31] LABS: GLUCOSE 253 mg/dL (70-99)
[2017-10-21 08:32] LABS: TOTAL PROTEIN 7.3 g/dL (6.4-8.3)
[2017-10-21 08:33] LABS: TOTAL BILIRUBIN 0.6 mg/dL (0.0-1.0)
[2017-10-21 08:35] LABS: ALKALINE PHOSPHATASE 156 IU/L (3-129); CREATININE 0.9 mg/dL (0.6-1.3); GFR ESTIMATE (CALCULATED) > 59 mL/min/
[2017-10-21 08:36] LABS: UREA NITROGEN (BUN) 13 mg/dL (9-23)
[2017-10-21 08:37] LABS: AST (GOT) 13 IU/L (2-34)
[2017-10-21 08:38] LABS: ALT (GPT) 23 IU/L (3-49); LIPASE 135 U/L (1.0-51.0)
[2017-10-21] MEDS ORDERED: PROTONIX40 MG PO (14:09)
[2017-10-21 15:30] VITALS: BP 180/77
[2017-10-21 23:11] VITALS: BP 153/68
[2017-10-22 06:25] LABS: HEMATOCRIT 27.1 % (36.0-46.0); HEMOGLOBIN 8.6 G/DL (11.9-15.5); MCH 26.5 PG (29.0-34.0); MCHC 31.7 G/DL (30.0-36.0); MCV 83.6 FL (83-99); PLATELET COUNT 257 K/uL (156-360); RBC DIS.WIDTH-CV 14.9 % (11.8-14.6); RBC DIS.WIDTH-SD 45.4 % (39-53); RED BLOOD COUNT 3.24 M/uL (3.80-5.20); WHITE BLOOD COUNT 7.9 K/uL (4.1-10.2)
[2017-10-22 06:49] LABS: CHLORIDE 105 MEQ/L (99-109); GLUCOSE 165 mg/dL (70-99); POTASSIUM 3.6 MEQ/L (3.7-5.4); SODIUM 142 MEQ/L (136-147); UREA NITROGEN (BUN) 20 mg/dL (9-23)
[2017-10-22 06:51] LABS: CREATININE 1.5 MG/DL (0.6-1.3); GFR ESTIMATE (CALCULATED) 40 mL/min/
[2017-10-22 07:22] VITALS: BP 117/59
[2017-10-22 11:05] VITALS: BP 115/60
[2017-10-22 12:42] LABS: HEMOGLOBIN A1c (GLYCOHEMOGLOB) 9.1 % (Below 5.7)
[2017-10-22 15:36] VITALS: BP 108/63
[2017-10-23 00:09] VITALS: BP 103/56
[2017-10-23 06:48] LABS: HEMATOCRIT 26.1 % (36.0-46.0); HEMOGLOBIN 8.2 G/DL (11.9-15.5); MCH 26.8 PG (29.0-34.0); MCHC 31.4 G/DL (30.0-36.0); MCV 85.3 FL (83-99); PLATELET COUNT 246 K/uL (156-360); RBC DIS.WIDTH-CV 15.3 % (11.8-14.6); RBC DIS.WIDTH-SD 47.5 % (39-53); RED BLOOD COUNT 3.06 M/uL (3.80-5.20); WHITE BLOOD COUNT 6.2 K/uL (4.1-10.2)
[2017-10-23 07:11] LABS: CHLORIDE 103 MEQ/L (99-109); IRON 34 MCG/DL (35-150); SODIUM 139 MEQ/L (136-147); TRANSFERRIN (TIBC) 193.1 mg/dL (215-380); TRANSFERRIN SATUR. 18 % (20-55); UREA NITROGEN (BUN) 27 mg/dL (9-23)
[2017-10-23 07:15] LABS: CREATININE 2.2 MG/DL (0.6-1.3); GFR ESTIMATE (CALCULATED) 26 mL/min/; GLUCOSE 119 mg/dL (70-99); POTASSIUM 4.5 MEQ/L (3.7-5.4)
[2017-10-23 08:08] LABS: FOLIC ACID (FOLATE) 9.8 NG/ML (5.0-22.0)
[2017-10-23 08:22] VITALS: BP 126/61
[2017-10-23 11:00] LABS: APPEARANCE CLOUDY ((CLEAR)); BILIRUBIN NEGATIVE; BLOOD NEGATIVE; COLOR YELLOW ((YELLOW)); GLUCOSE (STRIP) 150; KETONES NEGATIVE; LEUKOCYTES NEGATIVE; NITRITE NEGATIVE; PROTEIN (STRIP) >=500; SPECIFIC GRAVITY 1.016 (1.000-1.030); UROBILINOGEN 0.2 MG/DL (0.2-1.0)
[2017-10-23 11:37] LABS: UR CREATININE CONCENTRATION 221.1 MG/DL
[2017-10-23 11:51] LABS: BACTERIA 3+ /HPF; EPITHELIAL CELLS 2+ /HPF; HYALINE CASTS 30-40 /LPF; MUCUS TRACE /LPF; RED BLOOD CELLS NONE SEEN /HPF (0-5); WHITE BLOOD CELLS 15-20 /HPF (0-5)
[2017-10-23 15:41] VITALS: BP 129/61
[2017-10-23 23:19] VITALS: BP 159/79
[2017-10-24 06:59] VITALS: BP 180/93
[2017-10-24 07:17] LABS: CHLORIDE 103 MEQ/L (99-109); CREATININE 0.9 MG/DL (0.6-1.3); GFR ESTIMATE (CALCULATED) > 59 mL/min/; GLUCOSE 228 mg/dL (70-99); POTASSIUM 4.5 MEQ/L (3.7-5.4); SODIUM 140 MEQ/L (136-147); UREA NITROGEN (BUN) 17 mg/dL (9-23)
[2017-10-24 15:26] VITALS: BP 196/90
[2017-10-24 16:26] VITALS: BP 142/102
[2017-10-25] VITALS (7 sets, daily range): BP systolic 170–199; BP diastolic 79–96
[2017-10-26] VITALS (7 sets, daily range): BP systolic 120–198; BP diastolic 57–92
[2017-10-26 08:36] LABS: HEMATOCRIT 30.7 % (36.0-46.0); HEMOGLOBIN 9.6 G/DL (11.9-15.5); MCH 26.3 PG (29.0-34.0); MCHC 31.3 G/DL (30.0-36.0); MCV 84.1 FL (83-99); PLATELET COUNT 300 K/uL (156-360); RBC DIS.WIDTH-CV 14.9 % (11.8-14.6); RBC DIS.WIDTH-SD 45.9 % (39-53); RED BLOOD COUNT 3.65 M/uL (3.80-5.20); WHITE BLOOD COUNT 5.7 K/uL (4.1-10.2)
[2017-10-26 09:05] LABS: CHLORIDE 99 MEQ/L (99-109); CREATININE 0.9 MG/DL (0.6-1.3); GFR ESTIMATE (CALCULATED) > 59 mL/min/; GLUCOSE 299 mg/dL (70-99); SODIUM 139 MEQ/L (136-147); UREA NITROGEN (BUN) 12 mg/dL (9-23)
[2017-10-26 09:06] LABS: POTASSIUM 3.4 MEQ/L (3.7-5.4)
[2017-10-27] VITALS (7 sets, daily range): BP systolic 136–197; BP diastolic 67–88
[2017-10-27 09:56] LABS: HEMATOCRIT 30.9 % (36.0-46.0); HEMOGLOBIN 9.7 G/DL (11.9-15.5); MCH 26.4 PG (29.0-34.0); MCHC 31.4 G/DL (30.0-36.0); MCV 84.2 FL (83-99); PLATELET COUNT 318 K/uL (156-360); RBC DIS.WIDTH-CV 15.1 % (11.8-14.6); RBC DIS.WIDTH-SD 46.4 % (39-53); RED BLOOD COUNT 3.67 M/uL (3.80-5.20); WHITE BLOOD COUNT 5.6 K/uL (4.1-10.2)
[2017-10-27 10:16] LABS: CHLORIDE 98 MEQ/L (99-109); CREATININE 0.9 MG/DL (0.6-1.3); GFR ESTIMATE (CALCULATED) > 59 mL/min/; GLUCOSE 203 mg/dL (70-99); POTASSIUM 3.7 MEQ/L (3.7-5.4); SODIUM 139 MEQ/L (136-147); UREA NITROGEN (BUN) 12 mg/dL (9-23)
[2017-10-28 00:01] VITALS: BP 127/61
[2017-10-28 05:00] VITALS: BP 181/82
[2017-10-28 07:30] VITALS: BP 164/75
[2017-10-28 15:06] VITALS: BP 120/59
[2017-10-28 23:48] VITALS: BP 124/62
[2017-10-29 07:21] VITALS: BP 138/65
[2017-10-29] MEDS ORDERED: FERROUS SULFAT325 MG PO (07:42)
[2017-10-29] MEDS ORDERED: METOCLOPRAMIDE10 MG PO (07:44)
[2017-10-29] MEDS ORDERED: TRANSDERM-SCOP1 EACH TD (07:45)
[2017-10-29] MEDS ORDERED: REGLAN10 MG PO (07:45)
== END 2017-10-29 14:00 | disposition home or self-care (01) | DRG 74 ==
LOC: EME 07:18 → 5EAST 13:03 → EDOF 13:03 → ENRESERV 13:05 → 5EAST 15:12
PROVIDERS: Emergency Medicine; Internal Medicine; Physician Assistant
DX: E11.43 Type 2 diabetes mellitus with diabetic autonomic (poly)neuropathy (principal); K31.84 Gastroparesis; N17.9 Acute kidney failure, unspecified; E11.65 Type 2 diabetes mellitus with hyperglycemia; E86.0 Dehydration; E87.6 Hypokalemia; R60.0 Localized edema; E78.5 Hyperlipidemia, unspecified; D53.9 Nutritional anemia, unspecified; K21.9 Gastro-esophageal reflux disease without esophagitis; K44.9 Diaphragmatic hernia without obstruction or gangrene; I10 Essential (primary) hypertension; F41.9 Anxiety disorder, unspecified; E66.01 Morbid (severe) obesity due to excess calories; K86.89 Other specified diseases of pancreas; T42.6X5A Adverse effect of other antiepileptic and sedative-hypnotic drugs, initial encounter; Z68.42 Body mass index [BMI] 45.0-49.9, adult; I16.0 Hypertensive urgency; Q63.8 Other specified congenital malformations of kidney; Z79.4 Long term (current) use of insulin; Y92.89 Other specified places as the place of occurrence of the external cause; Z79.899 Other long term (current) drug therapy; Z90.710 Acquired absence of both cervix and uterus
CPT/HCPCS: 74176; 76705; 80048; 80053; 81003; 81025; 82570; 82607; 82728; 82746; 82948; 83036; 83540; 83690; 84156; 84466; 85027; 87040; 99281; 99285; C9113; J0360; J0780; J1650; J1815; J2405; J2765; J3480; J7030; J7050; S0028

== ENCOUNTER 2017-11-23 07:23 | Inpatient (IN) | payer OTHER ==
[~2017-11-23] VITALS: Ht 162.6 cm; Wt 116.0 kg
[~2017-11-23 07:23] MED LIST changes: +TRANSDERM-SCOP1 EACH TD
[2017-11-23 08:00] LABS: BASOPHIL (%) 0.9 % (0-1); BASOPHIL COUNT 0.1 K/uL (0-0.1); EOSINOPHIL (%) 1.9 % (0-5); EOSINOPHIL COUNT 0.1 K/uL (0-0.3); HEMATOCRIT 33.7 % (36.0-46.0); HEMOGLOBIN 10.9 G/DL (11.9-15.5); IMMATURE GRANULOCYTE (%) 0.7 % (0.0-0.7); LYMPHOCYTE (%) 23.1 % (15-42); LYMPHOCYTE COUNT 1.3 K/uL (1.0-2.8); MCH 26.3 PG (29.0-34.0); MCHC 32.3 G/DL (30.0-36.0); MCV 81.4 FL (83-99); MONOCYTE (%) 7.4 % (3-12); MONOCYTE COUNT 0.4 K/uL (0-0.8); NEUTROPHIL COUNT 3.8 K/uL (1.8-6.4); PLATELET COUNT 297 K/uL (156-360); RBC DIS.WIDTH-CV 14.5 % (11.8-14.6); RED BLOOD COUNT 4.14 M/uL (3.80-5.20); WHITE BLOOD COUNT 5.8 K/uL (4.1-10.2)
[2017-11-23 08:08] LABS: CARBON DIOXIDE (BICARBONATE) 27.8 MEQ/L (20-31)
[2017-11-23 08:42] LABS: CHLORIDE 103 MEQ/L (99-109); CREATININE 0.9 MG/DL (0.6-1.3); GFR ESTIMATE (CALCULATED) > 59 mL/min/; GLUCOSE 289 mg/dL (70-99); POTASSIUM 4.3 MEQ/L (3.7-5.4); SODIUM 137 MEQ/L (136-147); UREA NITROGEN (BUN) 28 mg/dL (9-23)
[2017-11-23 12:58] LABS: AMPHETAMINE NEGATIVE (500 ng/mL); BARBITURATES NEGATIVE (200 ng/mL); BENZODIAZEPINES NEGATIVE (150 ng/mL); BUPRENORPHINE NEGATIVE (10 ng/mL); COCAINE NEGATIVE (150 ng/mL); METHADONE NEGATIVE (200 ng/mL); METHAMPHETAMINE NEGATIVE (500 ng/mL); OPIATES (MORPHINE) NEGATIVE (100 ng/mL); OXYCODONE NEGATIVE (100 ng/mL); PHENCYCLIDINE NEGATIVE (25 ng/mL); PROPOXYPHENE NEGATIVE (300 ng/mL); THC CANNABINOIDS NEGATIVE (50 ng/mL); TRICYCLIC ANTIDEPRESSANTS NEGATIVE (300 ng/mL)
[2017-11-23 13:56] VITALS: BP 178/106
[2017-11-23 15:02] LABS: ALBUMIN 3.8 G/DL (3.2-4.8); ALKALINE PHOSPHATASE 143 IU/L (3-129); ALT (GPT) 15 IU/L (3-49); AST (GOT) 13 IU/L (2-34); LIPASE 18 U/L (1.0-51.0); TOTAL BILIRUBIN 0.3 MG/DL (0.0-1.0); TOTAL PROTEIN 7.6 G/DL (6.4-8.3)
[2017-11-23 18:23] VITALS: BP 163/92
[2017-11-23 19:07] VITALS: BP 132/93
[2017-11-24 00:05] VITALS: BP 159/99
[2017-11-24 03:50] VITALS: BP 146/73
[2017-11-24 05:59] LABS: HEMATOCRIT 32.9 % (36.0-46.0); HEMOGLOBIN 10.4 G/DL (11.9-15.5); MCHC 31.6 G/DL (30.0-36.0); MCV 82.3 FL (83-99); PLATELET COUNT 310 K/uL (156-360); RBC DIS.WIDTH-CV 14.8 % (11.8-14.6); RBC DIS.WIDTH-SD 44.9 % (39-53); WHITE BLOOD COUNT 7.4 K/uL (4.1-10.2)
[2017-11-24 06:25] LABS: ALBUMIN 3.5 G/DL (3.2-4.8); ALKALINE PHOSPHATASE 130 IU/L (3-129); ALT (GPT) 14 IU/L (3-49); AST (GOT) 11 IU/L (2-34); CHLORIDE 109 MEQ/L (99-109); CREATININE 1.1 MG/DL (0.6-1.3); GFR ESTIMATE (CALCULATED) 57 mL/min/; GLUCOSE 309 mg/dL (70-99); TOTAL BILIRUBIN 0.3 MG/DL (0.0-1.0); TOTAL PROTEIN 6.6 G/DL (6.4-8.3); UREA NITROGEN (BUN) 27 mg/dL (9-23)
[2017-11-24 06:30] LABS: SODIUM 144 MEQ/L (136-147)
[2017-11-24 08:06] VITALS: BP 152/72
[2017-11-24 12:12] VITALS: BP 186/80
[2017-11-24 15:30] LABS: APPEARANCE CLEAR ((CLEAR)); BILIRUBIN NEGATIVE; BLOOD NEGATIVE; COLOR YELLOW ((YELLOW)); GLUCOSE (STRIP) >=500; KETONES 5; LEUKOCYTES NEGATIVE; NITRITE NEGATIVE; PROTEIN (STRIP) >=500; SPECIFIC GRAVITY 1.017 (1.000-1.030); UROBILINOGEN 0.2 MG/DL (0.2-1.0)
[2017-11-24 16:17] LABS: BACTERIA NONE SEEN /HPF; EPITHELIAL CELLS RARE /HPF; MUCUS NONE SEEN /LPF; UCUL ADDED? NO; WHITE BLOOD CELLS 0-5 /HPF (0-5)
[2017-11-24 16:21] VITALS: BP 180/84
[2017-11-24 23:17] VITALS: BP 179/82
[2017-11-25 07:02] LABS: CHLORIDE 108 MEQ/L (99-109); CREATININE 0.8 MG/DL (0.6-1.3); GFR ESTIMATE (CALCULATED) > 59 mL/min/; GLUCOSE 265 mg/dL (70-99); POTASSIUM 3.9 MEQ/L (3.7-5.4); SODIUM 144 MEQ/L (136-147); UREA NITROGEN (BUN) 20 mg/dL (9-23)
[2017-11-25 07:30] VITALS: BP 160/98
[2017-11-25 12:14] VITALS: BP 140/92
[2017-11-25 16:25] VITALS: BP 150/90
[2017-11-25 19:55] VITALS: BP 143/86
[2017-11-26 00:40] VITALS: BP 138/86
[2017-11-26 08:19] VITALS: BP 128/73
[2017-11-26] MEDS ORDERED: ZOFRAN4 MG PO (11:22)
== END 2017-11-26 12:38 | disposition home or self-care (01) | DRG 74 ==
LOC: EME 07:23 → EDOF 12:26 → 2EAST 12:26 → ENRESERV 12:33 → 2EAST 13:40
PROVIDERS: Emergency Medicine; Hospitalist; Internal Medicine; Internal Medicine Gastroenterology
DX: E11.43 Type 2 diabetes mellitus with diabetic autonomic (poly)neuropathy (principal); K31.84 Gastroparesis; E78.5 Hyperlipidemia, unspecified; I10 Essential (primary) hypertension; K21.9 Gastro-esophageal reflux disease without esophagitis; E11.65 Type 2 diabetes mellitus with hyperglycemia; D63.8 Anemia in other chronic diseases classified elsewhere; E66.01 Morbid (severe) obesity due to excess calories; K59.00 Constipation, unspecified; F39 Unspecified mood [affective] disorder; Z68.41 Body mass index [BMI] 40.0-44.9, adult; Z79.4 Long term (current) use of insulin; Z90.710 Acquired absence of both cervix and uterus
CPT/HCPCS: 71046; 74018; 80048; 80053; 80076; 81003; 82010; 82803; 82948; 83605; 83690; 85025; 85027; 87040; 99281; 99285; C9113; G0378; J0780; J1644; J1815; J2405; J2550; J2765; J7030; J7040